=== PATIENT | female | born 1950 | race Caucasian/White ===

== ENCOUNTER 2019-11-26 20:29 | Emergency (ER) | payer MEDICARE, SELFPAY ==
[2019-11-26 20:59] VITALS: BP 205/99; PULSE 82; RESP 20; TEMP 36.7; O2SAT 95
--- NOTE | 2019-11-26 21:19 | ED.EAR ---
HPI - Ear Problem General Chief complaint: Ear Stated complaint: swollen neck, pain in ear/ mouth Source: patient Mode of arrival: ambulatory Limitations: no limitations History of Present Illness HPI Narrative: This is a 69-year-old female presents with right-sided facial pain and pressure right maxillary sinus tenderness radiating into her right ear and right upper tooth area with some nasal congestion pressure in her right frontal sinus area with no neck pain no neck stiffness currently no fever chills no shortness of breath. The discomfort started earlier today and she rates her pain at 10/10 with a pressure sensation and radiating into her right ear. Currently there is no drainage from the right ear there is no vesicles, no nausea vomiting or abdominal pain. MD Complaint: ear pain Location: right ear Duration: constant Severity: severe Relieving factors: nothing Exacerbating factors: chewing Discharge from ear: Reports no Related Data Home Medications Medication Instructions Recorded Confirmed montelukast 10 mg tablet 10 mg PO QPM tablet 06/08/19 11/18/19 amitriptyline 50 mg tablet 50 mg PO .QHS tablet 11/18/19 11/18/19 Allergies Allergy/AdvReac Type Severity Reaction Status Date / Time pioglitazone Allergy Unknown Unknown Verified 11/26/19 21:06 Review of Systems Review of Systems: All systems reviewed & are unremarkable except as noted in HPI and below PMFSH Past Medical History Medical History COPD mixed type GERD (gastroesophageal reflux disease) Hypertension Incisional hernia Insomnia Primary osteoarthritis involving multiple joints Type 2 diabetes mellitus with diabetic polyneuropathy, without long-term current use of insulin Surgical History Surgical History History of hernia repair (~03/01/10) Hx of hernia repair (~02/21/10) Family History Family History Grandparent Diabetes mellitus Mother Diabetes mellitus Hypertension Family history of cardiovascular disease Family history of diabetes mellitus in first degree relative Family history of heart disease in male family member before age 55 Father Family history of emphysema Other Asthma Family history of alcoholism Family history of liver disease Social History Social History Smoking status: Former smoker Second hand tobacco smoke exposure: No Smoking end date: 05/06/12 Alcohol intake: never Substance use: never Substance use type: does not use Gender identity (if verbalized by the patient): Female Exam Const: General: no acute distress Orientation/consciousness: patient oriented x3 HENMT: Head: normal to inspection Face and sinus: sinus tenderness ( Right maxillary and right frontal sinus tenderness with palpation) Eyes: Conjunctivae: conjunctivae normal Pupils: Equal, round and reactive pupils present EOM: EOMs intact bilaterally Neck: Neck: normal visual inspection Chest: Chest palpation & inspection: normal inspection of the chest Resp: Effort & Inspection: normal respiratory effort Cardio: Rate: regular rate Rhythm: regular rhythm GI: Auscultation: normal bowel sounds : General: Yes no CVA tenderness Back/Spine/Pelvis: Back: no CVA tenderness Skin: General skin exam: normal color Rashes: no rashes Neuro: General: patient oriented x3 and moves all extremities Psych: Appearance: grossly normal Mental Status: mental status grossly normal Course Course Emergency Course: patient reassessment has some moderate relief with pain medication and with antibiotics. Vital Signs Vital signs: Vital Signs Temperature 36.7 C 11/26/19 20:59 Pulse Rate 82 11/26/19 20:59 Respiratory Rate 20 11/26/19 20:59 Blood Pressure 205/99 H 11/26/19 20:59 Pulse Oxime
[2019-11-26] MEDS: MORPHINE SULFATE 2 MG/ML INJ (21:36)
[2019-11-26] MEDS: cefTRIAXone 1 GM VIAL IM (21:37)
== END 2019-11-26 21:51 | disposition home or self-care (01) ==
PROVIDERS: Emergency Provider Emergency Medicine; PCP Family Medicine
DX: J01.00 Acute maxillary sinusitis, unspecified (principal)
CPT/HCPCS: 96372; 99283; 99284; J0696; J2270

== ENCOUNTER 2020-09-05 09:32 | Inpatient (IN) | payer MEDICARE, SELFPAY ==
[2020-09-05] VITALS (8 sets, daily range): BP systolic 122–141; BP diastolic 50–66; PULSE 67–74; RESP 16–23; TEMP 36.3–36.8; O2SAT 93–97
--- NOTE | ~2020-09-05 | CT_ITS ---
EXAMINATION: CT soft tissue neck w con EXAM DATE: 09/05/2020 10:45 INDICATION: Right-sided facial and ear swelling for 3 days. Assess for abscess. TECHNIQUE: Spiral CT of the neck was performed following intravenous injection of 75 mL Omnipaque 350 . Axial, coronal and sagittal images were reviewed. The dose-length product (DLP) for this examinat ion was 599.51 mGy-cm. The exposure was tailored according to patient size (auto mA exposure control ), and iterative reconstruction (ASIR) was used as additional dose reduction technique. Comparison is made to prior examination from 05/25/2015. FINDINGS: The thyroid gland is unremarkable. Density difference between the right and left submandi bular glands, more fatty involution on the left. No focal mass suspected. Mild fat stranding along th e right submandibular gland, possible sialoadenitis. Some fat stranding along the right platysma is m uscle. No abscess. There is no cervical lymphadenopathy. There are no masses identified. The supe rior mediastinum is unremarkable. Development of asymmetry of the airway with fullness to the right periglottic region which crosses th e midline at the level of the hyoid bone. Parapharyngeal and pre-glottic fat planes are preserved. There is moderate arteriosclerosis left carotid bulb, mild on the right. No surgical grade stenosis. The orbits are unremarkable. Visualized sinuses and mastoid air cells are well aerated. Lung api omid unremarkable. There is cervical spondylosis. IMPRESSION: 1. Mild fat stranding surrounding the right submandibular gland and along the platysmas muscle, coul d be sialoadenitis. No abscess. 2. Airway asymmetry, fullness to the right periglottic region crossing the midline. Can't exclude ca ncer. Please note medial carotid arteries also at this level. Consider nonemergent laryngoscopy 3. No abscess. Reviewed, dictated and finalized at location B. IMPRESSION: 1. Mild fat stranding surrounding the right submandibular gland and along the platysmas muscle, could be sialoadenitis. No abscess. 2. Airway asymmetry, fullness to the right periglottic region crossing the mid line. Can't exclude cancer. Please note medial carotid arteries also at this le petra. Consider nonemergent laryngoscopy 3. No abscess.
--- NOTE | 2020-09-05 09:53 | PC.NURSE ---
CELESTINA Bland at bedside. Note what appears to be an abscess to right peritonisallar area. Suctioned small amt sanguinous fluid from area. Wound culture obtained.
[2020-09-05] MEDS: SODIUM CHLORIDE 0.9% IV 1,000 ML 999 ML IV CONT (10:13)
--- NOTE | 2020-09-05 10:15 | PC.NURSE ---
Pt reports that throat feels not as bad since he did that {suction}, it doesn't feel like it's closing up anymore .
[2020-09-05 10:16] LABS: Basophils Absolute Auto 0.1 K/mm3 (0.0-0.1); Basophils Percent Auto 0.5 % (0.2-1.2); Eosinophils Absolute Auto 0.3 K/mm3 (0-0.3); Eosinophils Percent Auto 3.1 % (0-4.4); Hemoglobin 13.5 g/dL (12.0-15.0); Immature Granulocyte Absolute 0.11 K/mm3 (0.00-0.031); Lymphocytes Absolute Auto 1.41 K/mm3 (0.9-3.2); Lymphocytes Percent Auto 13.3 % (18.3-44.2); Mean Corpuscular HGB Conc 34.6 g/dl (32-36); Mean Corpuscular Hemoglobin 31.3 pg (26-34); Mean Corpuscular Volume 90.3 fl (80-100); Mean Platelet Volume 10.1 fl (7.4-10.4); Monocytes Absolute Auto 0.7 K/mm3 (0.1-0.6); Monocytes Percent Auto 6.4 % (2.6-8.5); Neutrophils Absolute Auto 8.1 K/mm3 (1.3-6.7); Neutrophils Percent Auto 75.7 % (45.5-73.1); Platelet Count Result 260 k/mm3 (150-375); Red Blood Count 4.32 M/mm3 (4.2-5.4); Red Cell Distribution Width 12.9 % (11.5-14.5); White Blood Count 10.6 K/mm3 (4.5-10.0)
[2020-09-05 10:32] LABS: Alanine Aminotransferase 40 U/L (4-35); Albumin Level 4.3 g/dL (3.5-5.1); Alkaline Phosphatase 93 U/L (38-126); Anion Gap 8 mmol/L (8-16); Aspartate Amino Transferase 34 U/L (14-36); Bilirubin,Total 0.6 mg/dL (0.2-1.3); Blood Urea Nitrogen 11 mg/dL (7-17); Calcium 9.6 mg/dL (8.4-10.2); Carbon Dioxide 28 mmol/L (22-30); Chloride 100 mmol/L (98-107); Estimated CRCL calculation 79 ml/min; Estimated Glomerular Filt Rate > 60; Glucose 142 mg/dL (65-105); Potassium 4.2 mmol/L (3.4-5.0); Sodium 136 mmol/L (137-145)
--- NOTE | 2020-09-05 10:44 | ED.GENADULT ---
HPI - General Adult General Chief complaint: Ear Stated complaint: R EAR/FACIAL SWELLING Time Seen by Provider: 09/05/20 09:34 Source: patient and RN notes reviewed Mode of arrival: ambulatory Limitations: no limitations History of Present Illness HPI narrative: Patient is a 70-year-old female who presents to emergency department for evaluation of right-sided jaw swelling and neck swelling patient has had this issue before and notes that it was attributed to an infection in the gland patient notes over the last several days she has had a reoccurrence patient notes aching pain patient denies URI symptoms fever chills nausea vomiting patient is a diabetic notes her sugars have been well controlled patient is otherwise in the room in no distress upon arrival Related Data Home Medications Medication Instructions Recorded Confirmed montelukast 10 mg tablet 10 mg PO QPM tablet 06/08/19 05/31/20 pitavastatin calcium 4 mg tablet 4 mg PO DAILY 05/31/20 05/31/20 Allergies Allergy/AdvReac Type Severity Reaction Status Date / Time pioglitazone Allergy Unknown Unknown Verified 09/05/20 09:56 Review of Systems Review of Systems: All systems reviewed & are unremarkable except as noted in HPI and below PMFSH Past Medical History Medical History (Updated 09/05/20 @ 13:47 by Oni Riojas PA-C) COPD mixed type GERD (gastroesophageal reflux disease) Hypertension Incisional hernia Insomnia Primary osteoarthritis involving multiple joints Type 2 diabetes mellitus with diabetic polyneuropathy, without long-term current use of insulin Surgical History Surgical History History of hernia repair (~03/01/10) Hx of hernia repair (~02/21/10) Family History Family History Grandparent Diabetes mellitus Mother Diabetes mellitus Hypertension Family history of cardiovascular disease Family history of diabetes mellitus in first degree relative Family history of heart disease in male family member before age 55 Father Family history of emphysema Other Asthma Family history of alcoholism Family history of liver disease Social History Social History Smoking status: Former smoker Second hand tobacco smoke exposure: No Smoking end date: 05/06/12 Alcohol intake: never Substance use: never Substance use type: does not use Gender identity (if verbalized by the patient): Female Exam Narrative: Exam Narrative: GENERAL: Well-appearing, obese, and in no acute distress. HEAD: Normocephalic, atraumatic. EYES: PERRLA and EOMI. ENT: Nares clear, no rhinorrhea or epistaxis. Mucous membranes moist. Oropharynx without tonsillar hypertrophy exudate. Patient with tenderness along the right lateral side of the tongue at the salivary duct gland where purulent discharges able to be expressed the floor of the mouth is soft there is no deviation of the tongue uvula is midline no trismus or drooling. . Bilateral TMs pearly fontana nonbulging NECK: Supple. Patient with swelling along the right jawline and submental region there is no erythema or warmth to touch CHEST: Clear to auscultation. No respiratory distress. No wheezes rales or rhonchi HEART: Regular rate and rhythm. No murmur heard. EXTREMITIES: Normal range of motion. No edema. SKIN: Warm, dry, no rash. NEURO: No focal deficits. Alert and oriented x3. PSYCH: Normal mood and affect. Course Course Emergency Course: Patient in the room in no distress aware of case findings treatment plan diagnosis discussion with her over the treatment options discussion was made with ENT. Patient will be placed in hospital overnight patient agrees with this plan it is felt that this is the safest option given that the patient could have potential for airway involvement however the laryngoscopy in the emergency department
[2020-09-05] MEDS: CLINDAMYCIN 900 MG/D5W 50 ML 900 MG/50 ML PIGGYBACK 50 MG IVPB ×2 (10:54→20:19)
--- NOTE | 2020-09-05 12:00 | PC.NURSE ---
Awaiting arrival of Dr. Dalton for consultation.
--- NOTE | 2020-09-05 12:36 | PC.NURSE ---
Dr. Warren at bedside for exam.
--- NOTE | 2020-09-05 13:50 | PC.NURSE ---
Awaiting bed assignment. Pt sleeping soundly on stretcher.
[2020-09-05 14:25] LABS: Glucose Point of Care 134 (65-105)
--- NOTE | 2020-09-05 14:52 | WPDPROCEDUR ---
Procedures Laryngoscopy Sedation/Analgesia: other (Afrin and lidocaine) Technique: indirect nasal laryngoscopy Laryngoscopy Comments: Normal sinonasal passages normal nasopharynx relatively normal pharyngeal examination the caudal and hypopharyngeal examination was significant for right-sided purulence more so than on the left. There was also edema globally which appeared somewhat physiologic meeting I believe the patient's habitus contributes to a concentric narrowing of the pharyngeal examination. Of note, this examination was limited by poor light source.
--- NOTE | 2020-09-05 14:55 | WPDCN ---
Assessment and Plan Assessment and plan (1) Sialadenitis: Code(s): K11.20 - Sialoadenitis, unspecified Status: Acute Assessment and Plan: The patient's flexible laryngoscopy was limited but was also somewhat reassuring, the patient's airway is relatively patent. I believe any narrowing is not only physiologic but also somewhat contributed to by the current infection. The patient presents with a right-sided saladenitis as well as pharyngitis. I recommended observation as well as IV antibiotics, Unasyn or clindamycin will suffice. I would obtain a CBC daily and observe the patient daily for improvement in her symptoms. I will perform a repeat flexible laryngoscopy on 09/06/20,late morning. Please call with any questions or concerns. The patient is ok for po intake. With any questions regarding diet or any concerns I would consult speech therapy. My cell is [phone] Strict glucose control is also paramount in over coming these infections. Lastly, I would reccomend warm compresses to the right submandibular gland and frequent massage/milking. This was demonstrated to the patient. (2) Pharyngitis: Code(s): J02.9 - Acute pharyngitis, unspecified Status: Acute HPI Data of Consult Date/Time: 09/05/20 14:55 Requesting Physician: Sara Dunaway MD Primary Care Provider: Horacio Prasad PA-C Consult Narrative Narrative: Jenny Mar is a 70 year old female With a history of several days of right-sided submandibular pain. Reports having this issue 2-3 times in the past year. CT with contrast demonstrates a inflamed right-sided submandibular gland with katia glandular fat stranding. The fat stranding also appears to extend in the pharynx as well. Fat stranding extends to floor mouth no stone seen. Patient only reports pain no dysphagia no odynophagia no difficulty breathing. White count 10. ER able to express purulence patient reports improvement in symptoms following expression of purulence from the right submandibular duct. Review of Systems Constitutional: Constitutional: Denies fatigue, Denies fever(s) and Denies lethargy Eyes: Eyes: Denies blurry vision and Denies change in vision ENT: Reports as per HPI Cardiovascular: Cardiovascular: Denies chest pain Respiratory: Respiratory: Denies cough Endocrine: Endocrine: Denies fatigue Hematologic/Lymphatic: Hematologic/Lymphatic: Denies easy bleeding, Denies easy bruising and Denies lymphadenopathy Allergic/Immunologic: Allergic/Immunologic: Denies seasonal rhinorrhea [facility] Past Medical History Medical History (Updated 09/05/20 @ 14:59 by Nathaniel Warren MD) COPD mixed type GERD (gastroesophageal reflux disease) Hypertension Incisional hernia Insomnia Primary osteoarthritis involving multiple joints Type 2 diabetes mellitus with diabetic polyneuropathy, without long-term current use of insulin Surgical History Surgical History History of hernia repair (~03/01/10) Hx of hernia repair (~02/21/10) Family History Family History Grandparent Diabetes mellitus Mother Diabetes mellitus Hypertension Family history of cardiovascular disease Family history of diabetes mellitus in first degree relative Family history of heart disease in male family member before age 55 Father Family history of emphysema Other Asthma Family history of alcoholism Family history of liver disease Social History Social History Smoking status: Former smoker Second hand tobacco smoke exposure: No Smoking end date: 05/06/12 Alcohol intake: never Substance use: never Substance use type: does not use Gender identity (if verbalized by the patient): Female Meds Home Medications and Allergies Home Medications Medication Instructions Recorded
[2020-09-05] MEDS: LACTATED RINGERS 1,000 ML 75 ML IV CONT (15:35)
--- NOTE | 2020-09-05 16:00 | PM.IMHP ---
H&P: HPI History of Present Illness Date/Time: 09/05/20 16:00 Chief Complaint: Right face swelling. Narrative: This is a 70-year-old female with history of sialadenitis, type 2 diabetes, COPD, and hypertension who presented to the emergency department earlier today from home with complaints of right face swelling. Over the last 3 days she has had progressive swelling on the right side of her face with aching discomfort in the same region. She has also had a mild sore throat. Purulent drainage was able to be expressed on massage of the area in the emergency department and a CT with contrast demonstrated an inflamed right-sided submandibular gland with katia glandular fat stranding which appears to extend into the pharynx as well. Dr. Nathaniel Warren (ENT) evaluated the patient in the emergency department via indirect nasal laryngoscopy and he recommends observation with IV antibiotics with repeat laryngoscopy tomorrow morning. At the time my evaluation she reports feeling a bit better after some of the drainage was expressed however she admits that it was quite painful. She denies fever, chills, sweats, sinus congestion, rhinorrhea, otalgia, cough, dysphagia, shortness of breath, nausea, and vomiting. Review of Systems Review of Systems: Narrative: Twelve systems were reviewed with pertinent positives and negatives as per HPI. She believes her diabetes is well controlled. No blurry vision, polydipsia, or polyuria. She has a ventral hernia that will give her discomfort when bending over however no pain with rest and it has always been reducible. Except as documented, all other systems were reviewed and are negative. [facility] Past Medical History Medical History (Updated 09/06/20 @ 00:47 by Heather Buenrostro PA-C) Cervical cancer COPD mixed type Gastroesophageal reflux disease Incisional hernia Insomnia Mixed hyperlipidemia Primary hypertension Primary osteoarthritis involving multiple joints Type 2 diabetes mellitus with diabetic polyneuropathy, without long-term current use of insulin Surgical History Surgical History (Updated 09/06/20 @ 00:47 by Heather Buenrostro PA-C) History of hernia repair (~02/2010) History of total hysterectomy Family History Family History Grandparent Diabetes mellitus Mother Diabetes mellitus Hypertension Family history of cardiovascular disease Family history of diabetes mellitus in first degree relative Family history of heart disease in male family member before age 55 Father Family history of emphysema Other Asthma Family history of alcoholism Family history of liver disease Social History Social History (Updated 09/06/20 @ 00:47 by Heatehr Buenrostro PA-C) Social History: Surrogate decision maker: Halina Calero, daughter. Code status: Full code. Smoking status: Former smoker Second hand tobacco smoke exposure: No Alcohol intake: never Substance use: never Substance use type: does not use Additional living arrangements comments: Resides in [place] in her own home. Occupation/Education: retired Additional occupation/education comments: Unemployed. Gender identity (if verbalized by the patient): Female Spiritual care concerns: No Meds Home Medications and Allergies Home Medications Medication Instructions Recorded Confirmed Type montelukast 10 mg tablet 10 mg PO QPM tablet 06/08/19 09/05/20 History metoprolol tartrate 50 mg tablet 75 mg PO BID #270 tablet 10/13/19 09/05/20 Rx loratadine [Claritin] 10 mg PO DAILY #7 tablet 11/26/19 09/05/20 Rx blood sugar diagnostic #100 each 12/15/19 09/05/20 Rx amitriptyline 50 mg tablet 50 mg PO .QHS #90 tablet 03/30/20 09/05/20 Rx tramadol 50 mg tablet 50 mg PO QID PRN #120 tablet 04/11/20 09/05/20 Rx albuterol sulfate 90 mcg/actuation 2 puff INHALATION Q4-6H PRN #8.5 gm 05/18/20 09/05/20 Rx aerosol inhaler lisinopril 20 mg tablet 20 mg PO PROSPER
[2020-09-05 17:44] LABS: Glucose Point of Care 123 (65-105)
[2020-09-05] MEDS: traMADol HCL (*CRX) 50 MG TABLET PO (17:56)
[2020-09-05] MEDS: MONTELUKAST SODIUM 10 MG TABLET PO (17:57)
[2020-09-05] MEDS: SACCHAROMYCES BOULARDII 250 MG CAPSULE PO (17:57)
[2020-09-05] MEDS: METOPROLOL TARTRATE 25 MG TABLET 75 MG PO (20:17)
[2020-09-05] MEDS: DOXAZOSIN MESYLATE 4 MG TABLET PO (20:17)
[2020-09-05] MEDS: AMITRIPTYLINE HCL 25 MG TABLET 50 MG PO (20:17)
[2020-09-05 22:21] LABS: Glucose Point of Care 177 (65-105)
[2020-09-06 04:54] VITALS: BP 129/52; PULSE 66; RESP 20; TEMP 36.5; O2SAT 93
[2020-09-06] MEDS: CLINDAMYCIN 900 MG/D5W 50 ML 900 MG/50 ML PIGGYBACK 50 MG IVPB (05:39)
[2020-09-06] MEDS: PANTOPRAZOLE 40 MG TABLET PO (05:43)
[2020-09-06 05:45] LABS: Basophils Absolute Auto 0.1 K/mm3 (0.0-0.1); Basophils Percent Auto 0.6 % (0.2-1.2); Eosinophils Absolute Auto 0.3 K/mm3 (0-0.3); Eosinophils Percent Auto 3.9 % (0-4.4); Hematocrit 33.7 % (37.0-47.0); Hemoglobin 11.7 g/dL (12.0-15.0); Immature Granulocyte Absolute 0.09 K/mm3 (0.00-0.031); Immature Granulocyte Percent A 1.1 % (0-0.5); Lymphocytes Absolute Auto 1.49 K/mm3 (0.9-3.2); Mean Corpuscular HGB Conc 34.7 g/dl (32-36); Mean Corpuscular Hemoglobin 30.6 pg (26-34); Mean Corpuscular Volume 88.2 fl (80-100); Monocytes Absolute Auto 0.7 K/mm3 (0.1-0.6); Monocytes Percent Auto 7.8 % (2.6-8.5); Neutrophils Absolute Auto 5.7 K/mm3 (1.3-6.7); Neutrophils Percent Auto 68.6 % (45.5-73.1); Platelet Count Result 235 k/mm3 (150-375); Red Blood Count 3.82 M/mm3 (4.2-5.4); Red Cell Distribution Width 12.7 % (11.5-14.5); White Blood Count 8.3 K/mm3 (4.5-10.0)
[2020-09-06 06:26] LABS: Anion Gap 4 mmol/L (8-16); Blood Urea Nitrogen 7 mg/dL (7-17); Calcium 8.9 mg/dL (8.4-10.2); Carbon Dioxide 30 mmol/L (22-30); Chloride 100 mmol/L (98-107); Estimated CRCL calculation 79 ml/min; Estimated Glomerular Filt Rate > 60; Glucose 127 mg/dL (65-105); Magnesium 1.4 mg/dL (1.6-2.3); Potassium 3.5 mmol/L (3.4-5.0); Sodium 134 mmol/L (137-145)
[2020-09-06 06:41] LABS: Hemoglobin A1C 6.2 % (<5.7)
[2020-09-06] MEDS: hydroCHLOROthiazide 12.5 MG CAPSULE PO (08:24)
[2020-09-06] MEDS: DICLOFENAC SOD 75 MG TABLET.EC PO (08:24)
[2020-09-06] MEDS: traMADol HCL (*CRX) 50 MG TABLET PO (08:24)
[2020-09-06] MEDS: LORATADINE 10 MG TABLET PO (08:25)
[2020-09-06] MEDS: lisinopriL 20 MG TABLET PO (08:25)
[2020-09-06] MEDS: SACCHAROMYCES BOULARDII 250 MG CAPSULE PO (08:25)
[2020-09-06] MEDS: METOPROLOL TARTRATE 25 MG TABLET 75 MG PO (08:25)
[2020-09-06] MEDS: FLUTICASONE/SALMETEROL 115-21 MCG INHALER 1 PUFF 2 PUFF INHALATION (08:46)
[2020-09-06 09:10] LABS: Glucose Point of Care 132 (65-105)
[2020-09-06 09:19] VITALS: O2SAT 93
[2020-09-06 11:14] LABS: Glucose Point of Care 142 (65-105)
[2020-09-06 12:22] LABS: Glucose Point of Care 119 (65-105)
--- NOTE | 2020-09-06 12:58 | WPDCN ---
Assessment and Plan Assessment and plan (1) Sialadenitis: Code(s): K11.20 - Sialoadenitis, unspecified Status: Acute Assessment and Plan: the patient should follow up with me in 1-2 weeks. We will discuss removing the gland versus referral to [facility] for endoscopy. The patient should be discharged on 7-10 days of clindamycin. The patient should monitor her blood sugars at home. The patient should continue milking and massaging the gland as well as using warm compresses. I recommend increasing hydration as well as sucking on sugar free sialagogues. All this was conveyed to the patient as well. I conveyed the importance that should she have any difficulty breathing or swallowing she needs to present again to the emergency room as the infection is not yet gone. She stated that she understands and will do this. HPI Data of Consult Date/Time: 09/06/20 12:58 Requesting Physician: Sara Dunaway MD Primary Care Provider: Horacio Prasad PA-C Consult Narrative Narrative: Jenny Mar is a 70 year old female with recurrent right sided sialoadenitis. White count down from 10 to 8 this morning. Patient reports near total improvement in her symptoms other than right-sided neck pain. Currently on clindamycin. Review of Systems Constitutional: Constitutional: Denies fatigue, Denies fever(s) and Denies lethargy Eyes: Eyes: Denies blurry vision and Denies change in vision ENT: Reports as per HPI Cardiovascular: Cardiovascular: Denies chest pain Respiratory: Respiratory: Denies cough Endocrine: Endocrine: Denies fatigue Hematologic/Lymphatic: Hematologic/Lymphatic: Denies easy bleeding, Denies easy bruising and Denies lymphadenopathy Allergic/Immunologic: Allergic/Immunologic: Denies seasonal rhinorrhea [facility] Past Medical History Medical History (Updated 09/06/20 @ 00:47 by Heather Buenrostro PA-C) Cervical cancer COPD mixed type Gastroesophageal reflux disease Incisional hernia Insomnia Mixed hyperlipidemia Primary hypertension Primary osteoarthritis involving multiple joints Type 2 diabetes mellitus with diabetic polyneuropathy, without long-term current use of insulin Surgical History Surgical History (Updated 09/06/20 @ 00:47 by Heather Buenrostro PA-C) History of hernia repair (~02/2010) History of total hysterectomy Family History Family History Grandparent Diabetes mellitus Mother Diabetes mellitus Hypertension Family history of cardiovascular disease Family history of diabetes mellitus in first degree relative Family history of heart disease in male family member before age 55 Father Family history of emphysema Other Asthma Family history of alcoholism Family history of liver disease Social History Social History (Updated 09/06/20 @ 00:47 by Heather Buenrostro PA-C) Social History: Surrogate decision maker: Halina Calero, daughter. Code status: Full code. Smoking status: Former smoker Second hand tobacco smoke exposure: No Alcohol intake: never Substance use: never Substance use type: does not use Additional living arrangements comments: Resides in [place] in her own home. Occupation/Education: retired Additional occupation/education comments: Unemployed. Gender identity (if verbalized by the patient): Female Spiritual care concerns: No Meds Home Medications and Allergies Home Medications Medication Instructions Recorded Confirmed Type montelukast 10 mg tablet 10 mg PO QPM tablet 06/08/19 09/05/20 History metoprolol tartrate 50 mg tablet 75 mg PO BID #270 tablet 10/13/19 09/05/20 Rx loratadine [Claritin] 10 mg PO DAILY #7 tablet 11/26/19 09/05/20 Rx blood sugar diagnostic #100 each 12/15/19 09/05/20 Rx amitriptyline 50 mg tablet 50 mg PO .QHS #90 tablet 03/30/20 09/05/20 Rx tramadol 50 mg tablet 50 mg PO QID PRN #120 tablet 04/11/20 09/05/20 Rx albu
[2020-09-06 14:00] VITALS: BP 152/64; PULSE 65; RESP 18; TEMP 36.2; O2SAT 96
[2020-09-06] MEDS: CLINDAMYCIN HCL 150 MG CAP 900 MG PO (15:00)
--- NOTE | 2020-09-06 16:00 | PM.DS ---
DS: Admitting Diagnosis Admitting Diagnosis Admitting Diagnosis: right sided facial swelling DS: Discharge Diagnosis Discharge Diagnosis (1) Sialadenitis: Code(s): K11.20 - Sialoadenitis, unspecified Status: Acute (2) Pharyngitis: Code(s): J02.9 - Acute pharyngitis, unspecified Status: Acute (3) Primary hypertension: Code(s): I10 - Essential (primary) hypertension Status: Acute (4) Type 2 diabetes mellitus with diabetic polyneuropathy, without long-term current use of insulin: Code(s): E11.42 - Type 2 diabetes mellitus with diabetic polyneuropathy Status: Acute (5) COPD mixed type: Code(s): J44.9 - Chronic obstructive pulmonary disease, unspecified Status: Acute (6) Gastroesophageal reflux disease: Code(s): K21.9 - Gastro-esophageal reflux disease without esophagitis Status: Acute DS: Summary Hospital Course Hospital Course: 70 year old lady admitted with a 3 day history of right-sided jaw pain and swelling similar to prior episodes of sialadenitis. CT did show evidence of the same as well as some swelling and she was noted to have pharyngitis on indirect nasal laryngoscopy per Dr. Warren. Dr. Warren recommended overnight admission for IV antibiotics. He initially planed to repeat lower endoscopy today, however she is is scheduled to follow up with him in 2 weeks to discuss treatment options. She denies any SOB and tolerating her secretions and diet. She is stable and will be discharged home. Time Spent with Patient Time attestation: Total time spent providing and/or coordinating discharge services: 55 min Exam Narrative: Exam Narrative: General: Well-developed female sitting up in bed in no distress. Weight: 113.6 kilograms. BMI: 45.8. HEENT: PERRL, EOMI. Sclerae anicteric. Oral mucosa moist. Oropharynx is crowded. Right submandibular gland is firm and tender to palpation with mild surrounding erythema. Neck: Supple. Right submandibular gland firm enlarged as above. Respiratory: Lungs are clear to auscultation bilaterally. Cardiovascular: Regular rate and rhythm with S1-S2. Gastrointestinal: Abdomen is soft, morbidly obese, nontender, and nondistended with positive bowel sounds. Reducible hernia left of midline. Skin: Warm and dry. No rash or lesions on limited exam. Extremities: No cyanosis, clubbing, or edema. Radial and pedal pulses intact. Neurological: Alert. Cranial nerves 2-12 are grossly intact. No gross focal deficits to casual conversation. Psychiatric: Pleasant and cooperative with appropriate mood and affect. DS: Data Data Completed and Pending Labs on day of discharge: Labs from last 24 hours 09/06/20 09/06/20 09/06/20 12:15 11:10 08:23 WBC RBC Hgb Hct MCV MCH MCHC RDW Plt Count MPV Immature Gran % (Auto) Neut % (Auto) Lymph % (Auto) [place] % (Auto) Eos % (Auto) Baso % (Auto) Lymph # (Auto) [place] # (Auto) Eos # (Auto) Baso # (Auto) Abs Immat Gran (auto) Absolute Neuts (auto) Absolute Nucleated RBC Nucleated RBC % Sodium Potassium Chloride Carbon Dioxide Anion Gap BUN Creatinine Estim Creat Clear Calc Estimated GFR Glucose POC Capillary Glucose 119 H 142 H 132 H Hemoglobin A1c Calcium Magnesium 09/06/20 09/06/20 09/06/20 05:21 05:21 05:21 WBC 8.3 RBC 3.82 L Hgb 11.7 L Hct 33.7 L MCV 88.2 MCH 30.6 MCHC 34.7 RDW 12.7 Plt Count 235 MPV 10.0 Immature Gran % (Auto) 1.1 H Neut % (Auto) 68.6 Lymph % (Auto) 18.0 L [place] % (Auto) 7.8 Eos % (Auto) 3.9 Baso % (Auto) 0.6 Lymph # (Auto) 1.49 [place] # (Auto) 0.7 H Eos # (Auto) 0.3 Baso # (Auto) 0.1 Abs Immat Gran (auto) 0.09 H Absolute Neuts (auto) 5.7 Absolute Nucleated RBC 0.0 Nucleated RBC % 0.0 Sodium 134 L Potassium 3.5 Chloride 100 Carbon
== END 2020-09-06 15:29 | disposition home or self-care (01) | DRG 155 ==
LOC: ANHED 13:47 → ANH2MED 14:27
PROVIDERS: Emergency Medicine Emergency Medical Services; Physician Assistant; Admitting Provider Family Medicine; Emergency Provider Emergency Medicine; PCP Physician Assistant; Visit Provider Family Medicine
DX: K11.22 Acute recurrent sialoadenitis (principal); Z68.42 Body mass index [BMI] 45.0-49.9, adult; I10 Essential (primary) hypertension; E11.42 Type 2 diabetes mellitus with diabetic polyneuropathy; J44.9 Chronic obstructive pulmonary disease, unspecified; K21.9 Gastro-esophageal reflux disease without esophagitis; M15.9 Polyosteoarthritis, unspecified; E66.9 Obesity, unspecified; Z87.891 Personal history of nicotine dependence; Z85.41 Personal history of malignant neoplasm of cervix uteri
CPT/HCPCS: 36415; 70491; 80048; 80053; 82948; 83036; 83735; 85025; 86140; 87070; 87075; 87205; 96365; 96367; 99285; A9270; G0378; J0131; J7030; J7120; Q9967

== ENCOUNTER → 2021-08-10 10:39 | Outpatient (CLI) | payer MEDICARE, SELFPAY ==
--- NOTE | ~2021-08-10 | MM_ITS ---
EXAMINATION: MM screening venkat BI w maki HISTORY: Screening TECHNIQUE: Craniocaudal and mediolateral oblique 3-D tomosynthesis images were obtained and synthetic 2-D images were generated. CAD analysis was submitted and interpreted. COMPARISON: Comparison to multiple prior studies sequentially, with oldest reviewed study dated 09/18. BREAST PARENCHYMAL COMPOSITION: There are scattered areas of fibroglandular density. FINDINGS: There are developing asymmetries in the subareolar location of the right breast on CC view. The left breast is stable without evidence for malignancy. IMPRESSION: 1. Developing right breast asymmetries. 2. Additional mammographic views and possible breast ultrasound are recommended. BI-RADS Category 0: Incomplete: Needs additional imaging evaluation. Reviewed, dictated and finalized at location A. IMPRESSION: 1. Developing right breast asymmetries. 2. Additional mammographic views and possible breast ultrasound are recommended . BI-RADS Category 0: Incomplete: Needs additional imaging evaluation.
== END ==
PROVIDERS: PCP Family Medicine; Visit Provider Family Medicine
DX: Z12.31 Encounter for screening mammogram for malignant neoplasm of breast (principal); R92.8 Other abnormal and inconclusive findings on diagnostic imaging of breast
CPT/HCPCS: 77063; 77067

== ENCOUNTER → 2021-08-23 09:06 | Outpatient (CLI) | payer MEDICARE, SELFPAY ==
--- NOTE | ~2021-08-23 | MMUS_ITS ---
EXAMINATION: MM diagnostic venkat RT w maki, US breast RT complete HISTORY: Developing right breast asymmetries reported on August 10, 2021 bilateral screening mammogram TECHNIQUE: Additional 3-D tomosynthesis images of the right breast were performed and synthetic 2-D i mages were generated. CAD analysis was submitted and interpreted. High resolution complete right [address] st ultrasound including all 4 quadrants and subareolar area was performed. COMPARISON: Serial mammogram examinations dating back to 09/18/2013 bilateral screening mammogram FINDINGS: MAMMOGRAPHIC FINDINGS: There is chronic mildly nodular fibroglandular stroma. No suspicious mass or significant new or devel oping density is noted. There are multiple benign calcifications. No malignant calcification, skin thickening or retraction is detected. ULTRASOUND: 3:00 subareolar area: Parallel circumscribed 2.5 x 3.6 mm sonolucency without internal vascularity or posterior shadowing 6:00 subareolar area: 2.9 x 5.7 x 6.8 mm sonolucency without internal vascularity, consistent with cy st No suspicious mass or shadowing is evident. IMPRESSION: 1. Probable benign findings 2. 6 month diagnostic right mammogram and right breast ultrasound follow-up are recommended BI-RADS category 3, probably benign findings. Reviewed, dictated and finalized at location A. IMPRESSION: 1. Probable benign findings 2. 6 month diagnostic right mammogram and right breast ultrasound follow-up are recommended BI-RADS category 3, probably benign findings.
== END ==
PROVIDERS: PCP Family Medicine; Visit Provider Family Medicine
DX: R92.8 Other abnormal and inconclusive findings on diagnostic imaging of breast (principal)
CPT/HCPCS: 76641; 77061; 77065; G0279

== ENCOUNTER → 2022-03-26 09:25 | Outpatient (CLI) | payer MEDICARE, SELFPAY ==
--- NOTE | ~2022-03-26 | MMUS_ITS ---
EXAMINATION: MM diagnostic venkat RT w maki, US breast RT complete HISTORY: Six-month follow-up of probable benign findings TECHNIQUE: Full field and spot ML, MLO and CC 3-D tomosynthesis images of the right breast were perfo rmed and synthetic 2-D images were generated. CAD analysis was submitted and interpreted. High resolu tion complete right breast ultrasound including all 4 quadrants and subareolar area was performed. COMPARISON: 08/23/2021 diagnostic right mammogram and complete right breast ultrasound 08/10/2021 screening mammogram 10/20/2018 bilateral screening mammogram FINDINGS: MAMMOGRAPHIC FINDINGS: There are occasional circumscribed opacities measuring up to approximately 4.6 x 7.8 mm (coned compre ssion MLO Tomosynthesis image 39/83). There are multiple benign calcifications. No suspicious mass or architectural distortion, malignant calcification, skin thickening or retractio n of the right breast is detected. ULTRASOUND: No suspicious mass or shadowing is detected. 3:00 subareolar: 3.1 x 3.8 mm sonolucency with through transmission 6:00 subareolar: Parallel circumscribed 3 x 7 mm sonolucency with through transmission 10:00 subareolar area: Parallel circumscribed 3 x 5.5 mm septated probable cysts IMPRESSION: 1. Benign findings 2. Routine annual mammographic screening is recommended BI-RADS Category 2: Benign finding(s). Reviewed, dictated and finalized at location A. [employer] IMPRESSION: 1. Benign findings 2. Routine annual mammographic screening is recommended BI-RADS Category 2: Benign finding(s).
== END ==
PROVIDERS: PCP Family Medicine; Visit Provider Family Medicine
DX: R92.8 Other abnormal and inconclusive findings on diagnostic imaging of breast (principal)
CPT/HCPCS: 76641; 77061; 77065; G0279

== ENCOUNTER 2022-06-22 21:49 | Emergency (ER) | payer MEDICARE, SELFPAY ==
[2022-06-22] VITALS (8 sets, daily range): BP systolic 194–201; BP diastolic 76–100; PULSE 76–96; RESP 20; TEMP 37.1; O2SAT 92–94
--- NOTE | 2022-06-22 22:31 | ED.ALLEREA ---
HPI - Allergic Reaction General Chief complaint: Allergic Reaction Stated complaint: ambulance Time Seen by Provider: 06/22/22 22:29 History of Present Illness HPI narrative: 72-year-old female patient is brought to the ER by EMS after she developed an allergic reaction after eating her meals tonight. The patient apparently ate strawberry ice for the 1st time with her dinner and soon after that she started noticing some wheezing as well as swelling of the tongue. The patient became very anxious. She was given Benadryl by the family as well as by the EMS. She did have elevated blood pressure. She denies any trouble swallowing. She denies any itching or rash. She states that she is feeling a little better but the tongue is still swollen. She denies any drooling or trouble swallowing. Had right salivary gland removed in May of this year. States that has had multiple episodes of salivary duct stones in the past and they have been flushed before without much relief. Related Data Allergies Allergy/AdvReac Type Severity Reaction Status Date / Time pioglitazone Allergy Intermediate Swelling Verified 05/14/22 10:11 Review of Systems Review of Systems: All systems reviewed & are unremarkable except as noted in HPI and below Constitutional: Constitutional: Reports no additional constitutional complaints Eyes: Eyes: Reports no additional eye complaints ENT: Reports system reviewed and no additional complaints, except as documented Cardiovascular: Cardiovascular: Reports no additional cardiovascular complaints Respiratory: Respiratory: Reports no additional respiratory complaints Gastrointestinal: Gastrointestinal: Reports no additional gastrointestinal complaints Genitourinary: Genitourinary: Reports no additional female genitourinary complaints Musculoskeletal: Musculoskeletal: Reports no additional musculoskeletal complaints Integumentary/Breasts: Skin/Breast: Reports system reviewed and no additional complaints, except as docu Neurologic: Reports system reviewed and no additional complaints, except as documented Psychiatric: Psychiatric: Reports no additional psychiatric complaints Endocrine: Endocrine: Reports no additional endocrine complaints Hematologic/Lymphatic: Hematologic/Lymphatic: Reports no additional hematologic/lymphatic complaints Allergic/Immunologic: Allergic/Immunologic: Reports tongue swelling PMFSH Past Medical History Medical History Cervical cancer COPD mixed type Encounter for immunization Gastroesophageal reflux disease Incisional hernia Insomnia Mixed hyperlipidemia Primary hypertension Primary osteoarthritis involving multiple joints Salivary gland calculus Type 2 diabetes mellitus with diabetic polyneuropathy, without long-term current use of insulin Surgical History Surgical History History of hernia repair (~02/2010) History of total hysterectomy Family History Family History Grandparent Diabetes mellitus Mother Diabetes mellitus Hypertension Family history of cardiovascular disease Family history of diabetes mellitus in first degree relative Family history of heart disease in male family member before age 55 Father Family history of emphysema Other Asthma Family history of alcoholism Family history of liver disease Social History Social History Social History: Surrogate decision maker: Halina Calero, daughter. Code status: Full code. Smoking status: Former smoker Second hand tobacco smoke exposure: No Alcohol intake: never Substance use: never Substance use type: does not use Lack of Transportation: YES Lack of Food: Sometimes True Current Housing: I Have Housing Concerned About Future Housing: No Difficulty Paying Gas/Electric [place]
[2022-06-22] MEDS: hydrOXYzine HCL 25 MG TABLET PO (22:42)
[2022-06-22] MEDS: cloNIDine HCL 0.1 MG TABLET PO (22:42)
[2022-06-22] MEDS: FAMOTIDINE 20 MG/ISO 50 ML 20 MG/50 ML BAG 100 MG IVPB (22:43)
[2022-06-23 00:08] VITALS: PULSE 69; RESP 20; TEMP 36.7; O2SAT 99
== END 2022-06-23 00:14 | disposition home or self-care (01) ==
PROVIDERS: Emergency Provider Emergency Medicine; PCP Family Medicine
DX: T78.3XXA Angioneurotic edema, initial encounter (principal); I10 Essential (primary) hypertension; E78.2 Mixed hyperlipidemia; E11.9 Type 2 diabetes mellitus without complications; Z87.891 Personal history of nicotine dependence; Z85.41 Personal history of malignant neoplasm of cervix uteri
CPT/HCPCS: 96365; 96375; 99284; A9270; J1100

== ENCOUNTER 2023-03-25 02:06 | Day surgery (SDC) | payer MEDICARE, SELFPAY ==
[2023-03-11 13:34] VITALS: BMI 44.9
--- NOTE | 2023-03-22 10:50 | SUR.PREOP ---
Patient called regarding upcoming procedure. Reviewed preop instructions, appointment times, and procedure prep.
[2023-03-25 09:50] VITALS: BP 171/82; PULSE 75; RESP 20; TEMP 36.8; O2SAT 96; BMI 43.9
[2023-03-25 10:00] LABS: Glucose Point of Care 141 mg/dl (65-105)
[2023-03-25] MEDS: LACTATED RINGERS 1,000 ML 150 ML IV CONT (10:03)
--- NOTE | 2023-03-25 10:13 | WPDANESEPPF ---
Anes - Initial Pre Proc Eval Procedure: Operation Date: 03/25/23 11:00 Proposed Procedures p Colonoscopy - Lino Barron MD Date/Time: 03/25/23 10:13 Surgeon: Lino Barron MD Pre Op Diagnosis: Personal hx of colonic polyps Patient Data Age: 72 Gender: F Height: 1.6 m Weight: 112.5 kg Last Vital Signs Temp 98.2 F 03/25/23 09:50 Pulse 75 03/25/23 09:50 Resp 20 03/25/23 09:50 BP 171/82 H 03/25/23 09:50 Pulse Ox 96 03/25/23 09:50 O2 Del Method Room Air 03/25/23 09:50 Allergies Allergy/AdvReac Type Severity Reaction Status Date / Time pioglitazone AdvReac Intermediate Swelling Verified 03/25/23 09:48 morphine AdvReac Unknown Agitated/An Verified 03/25/23 09:48 gry Home Medications Medication Instructions Recorded Confirmed Type blood sugar diagnostic (OneTouch #100 ea 12/15/19 03/25/23 Rx Ultra Blue Test Strip) Saccharomyces boulardii 250 mg 250 mg PO BID #30 caps 09/06/20 03/25/23 Rx capsule (Florastor) lorazepam 0.5 mg tablet 0.5 mg PO TID PRN anxiety #40 tabs 02/03/21 03/25/23 Rx metformin 1,000 mg tablet 1,000 mg PO BID #180 tabs 04/08/22 03/25/23 Rx famotidine 40 mg tablet 40 mg PO BID #20 tabs 06/22/22 03/25/23 Rx hydroxyzine HCl 25 mg tablet 25 mg PO TID #20 tabs 06/22/22 03/25/23 Rx loratadine 10 mg tablet (Claritin) 10 mg PO DAILY #30 tabs 09/20/22 03/25/23 Rx doxazosin 4 mg tablet 4 mg PO HS #90 tabs 09/30/22 03/25/23 Rx fluticasone propionate 50 1 spray intranasal Q12H #16 grams 09/30/22 03/25/23 Rx mcg/actuation nasal spray,suspension omeprazole 20 mg capsule,delayed See Rx Instructions .Route 09/30/22 03/25/23 Rx release .COMPLEX #90 caps metoprolol tartrate 50 mg tablet 100 mg PO BID #360 tabs 10/30/22 03/25/23 Rx blood sugar diagnostic (Blood #100 ea 11/13/22 03/25/23 Rx Glucose Test strips) blood-glucose meter #1 ea 11/13/22 03/25/23 Rx lisinopril 20 mg tablet 40 mg PO DAILY #180 tabs 11/13/22 03/25/23 Rx potassium chloride 10 mEq 10 meq PO .M W F #90 caps 11/13/22 03/25/23 Rx capsule,extended release pitavastatin calcium 4 mg tablet 4 mg PO HS #90 tabs 12/14/22 03/25/23 Rx (Livalo) montelukast 10 mg tablet 10 mg PO QPM #30 tabs 01/26/23 03/25/23 Rx fluticasone 500 mcg-salmeterol 50 See Rx Instructions .Route 01/29/23 03/25/23 Rx mcg/dose blistr powdr for .COMPLEX #60 ea inhalation (Wixela Inhub) hydrochlorothiazide 25 mg tablet 25 mg PO DAILY #90 tabs 02/13/23 03/25/23 Rx diclofenac sodium 75 mg 75 mg PO BID PRN pain #180 tabs 02/26/23 03/25/23 Rx tablet,delayed release tramadol 50 mg tablet 50 mg PO QID PRN pain #120 tabs 03/06/23 03/25/23 Rx albuterol sulfate 90 mcg/actuation See Rx Instructions .Route 03/11/23 03/25/23 History aerosol inhaler .COMPLEX PRN Wheezing epinephrine 0.3 mg/0.3 mL 0.3 ml subcut ONCE PRN Anaphylaxis 03/11/23 03/25/23 History injection, auto-injector (EpiPen 2-Aditya) Laboratory Tests 03/25/23 09:58 POC Capillary Glucose 141 H mg/dl (65-105) Patient hx anesthesia problems: none Family hx anesthesia problems: none Results Review: All pre-operative results and documents have been reviewed as part of the pre-operative evaluation. [facility] Past Medical History Medical History Cervical cancer COPD mixed type Encounter for immunization Gastroesophageal reflux disease Incisional hernia Insomnia Mixed hyperlipidemia Primary hypertension Primary osteoarthritis involving multiple joints Salivary gland calculus Type 2 diabetes mellitus with diabetic polyneuropathy, without long-term current use of insulin Surgical History Surgical History History of hernia repair (~02/2010) History of total hysterectomy Family History Family History Grandparent Diabetes mellitus Mother Diabete
--- NOTE | 2023-03-25 10:23 | PM.HPGS ---
History of Present Illness History of Present Illness Consent: Risks, benefits, and alternatives have been discussed and questions answered. Patient agrees to proceed with procedure. Chief complaint: colon screening Narrative: Jenny Mar is a 72 year old female here for screening colonoscopy, last one 10 years ago Review of Systems Constitutional: Constitutional: Denies headache(s) and Denies weakness Eyes: Eyes: Denies blurry vision ENT: Reports Normal hearing present, Denies headache(s) and Denies neck pain Cardiovascular: Cardiovascular: Denies chest pain and Denies dyspnea Respiratory: Respiratory: Denies dyspnea Gastrointestinal: Gastrointestinal: Reports no additional gastrointestinal complaints Genitourinary: Genitourinary: Denies dysuria Musculoskeletal: Musculoskeletal: Denies neck pain Integumentary/Breasts: Skin/Breast: Denies dry skin Neurologic: Reports Normal hearing present, Denies headache(s) and Denies weakness Psychiatric: Psychiatric: Denies anxiety Endocrine: Endocrine: Denies change in body appearance Hematologic/Lymphatic: Hematologic/Lymphatic: Denies easy bleeding Allergic/Immunologic: Allergic/Immunologic: Denies urticaria PMFSH Past Medical History Medical History (Updated 03/25/23 @ 10:24 by Lino Barron MD) Cervical cancer Colon cancer screening COPD mixed type Encounter for immunization Gastroesophageal reflux disease Incisional hernia Insomnia Mixed hyperlipidemia Primary hypertension Primary osteoarthritis involving multiple joints Salivary gland calculus Type 2 diabetes mellitus with diabetic polyneuropathy, without long-term current use of insulin Surgical History Surgical History History of hernia repair (~02/2010) History of total hysterectomy Family History Family History Grandparent Diabetes mellitus Mother Diabetes mellitus Hypertension Family history of cardiovascular disease Family history of diabetes mellitus in first degree relative Family history of heart disease in male family member before age 55 Father Family history of emphysema Other Asthma Family history of alcoholism Family history of liver disease Social History Social History Social History: Surrogate decision maker: Halina Calero, daughter. Code status: Full code. Years smoked: 40 Smoking status: Former smoker Second hand tobacco smoke exposure: No Alcohol intake: never Substance use: never Substance use type: does not use Lack of Transportation: YES Lack of Food: Sometimes True Current Housing: I Have Housing Concerned About Future Housing: No Difficulty Paying Gas/Electric Bills: YES Difficulty Paying for Meds: No Currently Unemployed: No Education: Decline to Answer Difficulty w/ Childcare or Family Care: No Living arrangements: with family Additional living arrangements comments: Resides in [place] in her own home. Occupation/Education: retired Additional occupation/education comments: Unemployed. Gender identity (if verbalized by the patient): Female Spiritual care concerns: No Meds Home Medications and Allergies Home Medications Medication Instructions Recorded Confirmed Type blood sugar diagnostic (OneTouch #100 ea 12/15/19 03/25/23 Rx Ultra Blue Test Strip) Saccharomyces boulardii 250 mg 250 mg PO BID #30 caps 09/06/20 03/25/23 Rx capsule (Florastor) lorazepam 0.5 mg tablet 0.5 mg PO TID PRN anxiety #40 tabs 02/03/21 03/25/23 Rx metformin 1,000 mg tablet 1,000 mg PO BID #180 tabs 04/08/22 03/25/23 Rx famotidine 40 mg tablet 40 mg PO BID #20 tabs 06/22/22 03/25/23 Rx hydroxyzine HCl 25 mg tablet 25 mg PO TID #20 tabs 06/22/22 03/25/23 Rx loratadine 10 mg tablet (Claritin) 10 mg PO DAILY #30 tabs 09/20/22 03/25/23
[2023-03-25 10:43] VITALS: BP 118/75; PULSE 76; RESP 21; O2SAT 95
[2023-03-25 10:53] VITALS: BP 131/72; PULSE 72; RESP 24; O2SAT 97
[2023-03-25 11:03] VITALS: BP 142/83; PULSE 70; RESP 26; O2SAT 97
== END 2023-03-25 11:07 | disposition home or self-care (01) ==
PROVIDERS: PCP Family Medicine; Visit Provider Internal Medicine Gastroenterology
PROC: 0DJD8ZZ Inspection of Lower Intestinal Tract, Via Natural or Artificial Opening Endoscopic (ICD-10-PCS; CPT 45378; principal; 2023-03-25 11:00)
DX: Z12.11 Encounter for screening for malignant neoplasm of colon (principal); K63.5 Polyp of colon; K57.30 Diverticulosis of large intestine without perforation or abscess without bleeding; K64.8 Other hemorrhoids; K21.9 Gastro-esophageal reflux disease without esophagitis; G47.00 Insomnia, unspecified; E78.2 Mixed hyperlipidemia; I10 Essential (primary) hypertension; E11.9 Type 2 diabetes mellitus without complications; J44.89 Other specified chronic obstructive pulmonary disease; Z79.84 Long term (current) use of oral hypoglycemic drugs; Z79.51 Long term (current) use of inhaled steroids; Z79.891 Long term (current) use of opiate analgesic; Z87.891 Personal history of nicotine dependence; Z85.41 Personal history of malignant neoplasm of cervix uteri; Z82.49 Family history of ischemic heart disease and other diseases of the circulatory system
CPT/HCPCS: 45385; 82948; 88305; J2704; J7120

== ENCOUNTER 2023-09-27 12:33 | Outpatient (CLI) | payer MEDICARE, MEDICAID, SELFPAY ==
--- NOTE | ~2023-09-27 | US_ITS ---
EXAMINATION: US art doppler w press LE DATE: 09/27/2023 13:16 INDICATION: Peripheral arterial occlusive disease. TECHNIQUE: Segmental pressures and plethysmographic and Doppler waveforms of the brachial and lower e xtremity arteries were obtained. COMPARISON: None. FINDINGS: Right and left brachial artery pressures of 159 mm Hg and 142 mm Hg, respectively, are concordant (no rmal difference <= 30 mmHg). The right ankle-brachial index (ANDREW) is 0.87 (normal >= 0.9-1.0). The right great toe-brachial index (TBI) is 0.67 (normal >= 0.65). Arterial Doppler waveforms are monophasic with normal systolic upstro kes at the right common femoral, popliteal, posterior tibial and dorsalis pedis arteries. The left ANDREW is 0.75. The left TBI is 0.69. Arterial Doppler waveforms are monophasic with normal sys tolic upstrokes at the left common femoral, popliteal, posterior tibial and dorsalis pedis arteries. IMPRESSION: 1. Arterial occlusive disease to bilateral lower limbs with mildly decreased right and mild to modera tely decreased left ABIs. Reviewed, dictated and finalized at location A. IMPRESSION: 1. Arterial occlusive disease to bilateral lower limbs with mildly decreased ri ght and mild to moderately decreased left ABIs.
== END 2023-09-27 12:34 | disposition home or self-care (01) ==
LOC: CHSIMG 12:36
PROVIDERS: PCP Family Medicine; Visit Provider Podiatrist Foot & Ankle Surgery
DX: I73.9 Peripheral vascular disease, unspecified (principal)
CPT/HCPCS: 93923

== ENCOUNTER 2023-10-04 11:00 | Outpatient (CLI) | payer MEDICARE, MEDICAID, SELFPAY ==
--- NOTE | ~2023-10-04 | US_ITS ---
US axilla LT 10/04/2023 11:14 Indication: Probable left axillary abnormality Procedure: High-resolution Limited ultrasound of the left axilla Comparison: No prior studies for comparison. Findings: In the area of palpable concern there is a mass measuring 3.4 x 2.9 x 1.9 cm with thin hypo echoic cortex and enlarged fatty hilum with internal vascularity, consistent with enlarged lymph node . Impression: 1: Enlarged left axillary lymph node corresponding to the area of palpable concern measuring up to 3. 4 cm. If there is concern for metastatic disease or lymphoma, further evaluation with biopsy recommen ded. Reviewed, dictated and finalized at location B. Impression: 1: Enlarged left axillary lymph node corresponding to the area of palpable conc moses measuring up to 3.4 cm. If there is concern for metastatic disease or lymph brittany, further evaluation with biopsy recommended.
== END 2023-10-04 11:01 ==
PROVIDERS: PCP Family Medicine; Visit Provider Physician Assistant Medical
DX: R59.0 Localized enlarged lymph nodes (principal)
CPT/HCPCS: 76882

== ENCOUNTER 2023-10-11 08:55 | Outpatient (CLI) | payer MEDICARE, MEDICAID, SELFPAY ==
--- NOTE | ~2023-10-11 | MMUS_ITS ---
EXAMINATION: MM diagnostic venkat BI w maki, US breast RT limited HISTORY: History of axillary mass. TECHNIQUE: Additional 3-D tomosynthesis images of the breasts were performed and synthetic 2-D images were generated. CAD analysis was submitted and interpreted. High resolution Limited right breast ult rasound was performed. COMPARISON: Comparison to multiple prior studies sequentially, with oldest reviewed study dated 02/03. BREAST PARENCHYMAL COMPOSITION: Not dense: There are scattered areas of fibroglandular density. FINDINGS: MAMMOGRAPHIC FINDINGS: The breasts are stable. No new masses, calcifications or architectural distortion are identified in e ither breast to suggest malignancy. ULTRASOUND: Limited right breast ultrasound: At 3:00 in the subareolar location there is a 3 mm cyst. There are m ildly prominent ducts. Normal-appearing right axillary lymph nodes are present. No suspicious masses are identified to suggest malignancy. IMPRESSION: 1. No evidence for malignancy in either breast. 2. Routine yearly screening mammogram and regular clinical breast examination are recommended. BI-RADS Category 2: Benign finding(s). Reviewed, dictated and finalized at location B. IMPRESSION: 1. No evidence for malignancy in either breast. 2. Routine yearly screening mammogram and regular clinical breast examination a re recommended. BI-RADS Category 2: Benign finding(s).
== END 2023-10-11 08:56 | disposition home or self-care (01) ==
PROVIDERS: PCP Family Medicine; Visit Provider Physician Assistant Medical
DX: R92.8 Other abnormal and inconclusive findings on diagnostic imaging of breast (principal)
CPT/HCPCS: 76642; 77062; 77066; G0279

== ENCOUNTER 2023-11-14 11:12 | Outpatient (CLI) | payer MEDICARE, MEDICAID, SELFPAY ==
--- NOTE | 2023-11-14 11:30 | ECG_ITS ---
Test Date: 2023-11-14 11:33:22 Measurements Intervals [place] Rate: 66 P: 35 WI: 228 QRS: -3 QRSD: 60 T: 52 QT: 391 QTc: 411 Interpretive Statements SINUS RHYTHM WITH FIRST DEGREE AV BLOCK LOW QRS VOLTAGE IN PRECORDIAL LEADS EXTENSIVE ANTERIOR INFARCT, AGE INDETERMINATE INFERIOR INFARCT, AGE INDETERMINATE BASELINE ARTIFACT- I, II, III, AVR, AVL, AVF, V1 ABNORMAL ECG No previous ECG available for comparison Electronically Signed On 11-14-2023 11:46:30 CDT by Norberto Wisdom D.O.
[2023-11-14 11:59] LABS: Anion Gap 12 mmol/L (4-12); Blood Urea Nitrogen 16 mg/dL (7-17); Calcium 9.3 mg/dL (8.4-10.2); Carbon Dioxide 29 mmol/L (22-30); Chloride 96 mmol/L (98-107); Estimated Glomerular Filt Rate 55; Glucose 113 mg/dL (65-110); Potassium 4.8 mmol/L (3.4-5.0); Sodium 137 mmol/L (137-145)
== END 2023-11-14 11:13 | disposition home or self-care (01) ==
LOC: ANHSURGERY 11:16
PROVIDERS: Anesthesiology; PCP Family Medicine; Visit Provider Surgery
DX: E11.42 Type 2 diabetes mellitus with diabetic polyneuropathy (principal); E78.2 Mixed hyperlipidemia; I10 Essential (primary) hypertension; I44.0 Atrioventricular block, first degree
CPT/HCPCS: 36415; 80048; 93005

== ENCOUNTER 2023-11-15 01:34 | Day surgery (SDC) | payer MEDICARE, MEDICAID, SELFPAY ==
[2023-11-13 09:21] VITALS: BMI 44.9
--- NOTE | 2023-11-13 09:28 | PC.NURSE ---
Report to the Outpatient Waiting Room, entrance under the green pavilion located off [facility], at time _1130_ on date _20-20-1409_. Planned Procedure Time: _130pm_. Time changes happen often and if your time is changed the preop area will call you the afternoon before. - You and your visitor will be asked to self-screen and do not enter if you have any COVID symptoms. - A mask is optional within the hospital at this time. Patients may have clear liquids (water, carbonated beverages, clear teas, apple juice) until 3 hours prior to surgery with a maximum of 20 ounces. - No food from midnight until time of surgery Take the following medications with a SIP of water the morning of surgery: ____Hydroxyzine, Metoprolol, Inhaler and Flonase DO NOT STOP ANY OF YOUR OTHER PRESCRIPTION MEDICATIONS PRIOR TO SURGERY ?EXCEPT THE FOLLOWING Medications to discontinue per physician ____None No diabetic medication morning of surgery. Please no make-up, nail faroese, hairspray, perfume, deodorant, or body powder the day of surgery. No jewelry (including any body piercings) or valuables the day of surgery, leave them at home. Please take a shower or bath the night before, or the morning of, surgery with an antibacterial soap. Wear comfortable, loose fitting clothing. - Jewelry must be removed prior to entering the operating room. Rings and piercings that are not removed may be cut off. - The hospital will not accept responsibility for valuables. - Please leave all valuables, including medications, at home the day of surgery. If you are going home after surgery, a licensed entry level truck driver must drive you home. - NO public transportation without another adult if you receive anesthesia. - We recommend that an adult stay with you for 24 hours following discharge. - We also recommend that you do not drive, make important decision, drink alcoholic beverages, or take any drugs that were not prescribed by your health care provider for at least 24 hours after your discharge time. Follow any additional instructions given to you from your surgeon. If you or anyone in your household have experienced Covid symptoms in the past week, please notify your surgeon or the nurse liaison at the phone number below for possible testing. Telephone instructions given to __Mildred__and asked if any additional questions and then verbalized understanding. Patient advised to call surgeon office or pre surgery nurse liaison [phone] if any additional questions.
[2023-11-15] VITALS (7 sets, daily range): BP systolic 94–144; BP diastolic 45–86; PULSE 60–91; RESP 14–19; TEMP 36.3–36.4; O2SAT 93–100
--- NOTE | 2023-11-15 11:49 | WPDHPUPDATE1 ---
History and Physical Update Update Date/Time: 11/15/23 11:49 History and Physical has been reviewed, including an updated exam of the patient. There are NO changes in the patient's condition. Risks, benefits, and alternatives have been discussed and questions answered. Patient agrees to proceed with procedure.
[2023-11-15 11:57] LABS: Glucose Point of Care 135 mg/dl (65-105)
[2023-11-15] MEDS: LACTATED RINGERS 1,000 ML 30 ML IV CONT (12:00)
--- NOTE | 2023-11-15 12:07 | WPDANESEPP ---
Anes - Eval Pre Procedure Procedure: Operation Date: 11/15/23 13:30 Proposed Procedures p Excisional Biopsy Left Deep Axillary Lymph Node - Taiwo Lombardo DO Date/Time: 11/15/23 12:07 Pre Op Diagnosis: Lt Axill Lymphadenopathy 3 cm Patient Data Age: 73 Gender: F Height: 1.57 m Weight: 111.4 kg Allergies Allergy/AdvReac Type Severity Reaction Status Date / Time pioglitazone AdvReac Intermediate Swelling Verified 11/13/23 09:18 morphine AdvReac Unknown Agitated/An Verified 11/13/23 09:18 gry Home Medications Medication Instructions Recorded Confirmed Type blood sugar diagnostic (OneTouch #100 ea 12/15/19 11/13/23 Rx Ultra Blue Test Strip) Saccharomyces boulardii 250 mg 250 mg PO BID #30 caps 09/06/20 11/13/23 Rx capsule (Florastor) lorazepam 0.5 mg tablet 0.5 mg PO TID PRN anxiety #40 tabs 02/03/21 11/13/23 Rx famotidine 40 mg tablet 40 mg PO BID #20 tabs 06/22/22 11/13/23 Rx hydroxyzine HCl 25 mg tablet 25 mg PO TID #20 tabs 06/22/22 11/13/23 Rx blood sugar diagnostic (Blood #100 ea 11/13/22 11/13/23 Rx Glucose Test strips) hydrochlorothiazide 25 mg tablet 25 mg PO DAILY #90 tabs 02/13/23 11/13/23 Rx epinephrine 0.3 mg/0.3 mL 0.3 ml subcut ONCE PRN Anaphylaxis 03/11/23 11/13/23 History injection, auto-injector (EpiPen 2-Aditya) loratadine 10 mg tablet (Claritin) 10 mg PO DAILY #30 tabs 03/29/23 11/13/23 Rx metformin 1,000 mg tablet 1,000 mg PO BID #180 tabs 03/29/23 11/13/23 Rx pitavastatin calcium 4 mg tablet 4 mg PO HS #90 tabs 08/16/23 11/13/23 Rx (Livalo) diclofenac sodium 75 mg 75 mg PO BID PRN pain #180 tabs 08/26/23 11/13/23 Rx tablet,delayed release albuterol sulfate 90 mcg/actuation See Rx Instructions .Route 09/18/23 11/13/23 Rx aerosol inhaler .COMPLEX PRN Wheezing #8.5 grams blood-glucose meter #1 ea 09/18/23 11/13/23 Rx montelukast 10 mg tablet 10 mg PO QPM #30 tabs 09/18/23 11/13/23 Rx doxazosin 4 mg tablet 4 mg PO HS #90 tabs 09/24/23 11/13/23 Rx omeprazole 20 mg capsule,delayed See Rx Instructions .Route 09/24/23 11/13/23 Rx release .COMPLEX #90 caps fluticasone 500 mcg-salmeterol 50 See Rx Instructions .Route 09/26/23 11/13/23 Rx mcg/dose blistr powdr for .COMPLEX #60 ea inhalation (Juan Alcala) lisinopril 20 mg tablet 40 mg PO DAILY #180 tabs 10/15/23 11/13/23 Rx metoprolol tartrate 50 mg tablet 100 mg PO BID #360 tabs 10/20/23 11/13/23 Rx fluticasone propionate 50 1 spray intranasal Q12H #16 grams 10/21/23 11/13/23 Rx mcg/actuation nasal spray,suspension potassium chloride 10 mEq 10 meq PO .M W F #90 caps 10/21/23 11/13/23 Rx capsule,extended release tramadol 50 mg tablet 50 mg PO QID PRN pain #120 tabs 11/05/23 11/13/23 Rx Laboratory Tests 11/15/23 11:55 POC Capillary Glucose 135 H mg/dl (65-105) Patient hx anesthesia problems: none Family hx anesthesia problems: none Results Review: All pre-operative results and documents have been reviewed as part of the pre-operative evaluation. [facility] Past Medical History Medical History Abscess of salivary gland Allergic rhinitis Cervical cancer COPD mixed type Follow-up examination of abnormal mammogram Gastroesophageal reflux disease Incisional hernia Insomnia Low back pain Mixed hyperlipidemia Nasal crusting Nasal folliculitis Peripheral vascular disease Pharyngitis Primary hypertension Primary osteoarthritis involving multiple joints Salivary gland calculus Screening mammogram, encounter for Sialadenitis Type 2 diabetes mellitus with diabetic polyneuropathy, without long-term current use of insulin Surgical History Surgical History History of hernia repair (~02/2010) History of total hysterectomy Family History Family History Grandparent Diabetes mellitus Mother Diabetes mellitus H
--- NOTE | 2023-11-15 12:08 | P.PNAN_ITS ---
Anes - Eval Final PreProcedure Day of Procedure 11/15/23 12:08 Patient weight: morbidly obese Heart: regular rate and rhythm Lungs: clear to auscultation Airway: Mallampati scale class III Neurological: alert and oriented Last oral intake: >/= 8 hours ASA classification: III Emergent: no Anesthetic plan: proceed Anesthesia type and monitoring: general LMA and standard monitoring Results Review: All pre-operative results and documents have been reviewed as part of the pre- operative evaluation. Informed Consent: The patient's anesthetic plan and its attendant risks and benefits were discussed with the patient/family/POA. Questions were solicited and answers provided to the satisfaction of the patient/family/POA.
[2023-11-15] MEDS: ceFAZolin 2 GM/D5W 50 ML 2 GM/50 ML BAG IVPB (12:38)
[2023-11-15] MEDS: LIDO 1%/EPINEPHRINE 1:100,000 50 ML VIAL 30 ML INFILTRATE (12:59)
--- NOTE | 2023-11-15 13:10 | SUR.OPER ---
Specimen sent with PONCE [place] fresh for permanent
--- NOTE | 2023-11-15 13:18 | W.PM.PROC2 ---
Procedure Note - Detailed Date of Procedure 11/15/23 Pre-op Diagnosis Left Axillary Lymphadenopathy Post-op Diagnosis Same Procedure Performed Excisional biopsy of deep 3 cm left axillary lymph node Surgeon Taiwo Lombardo, DO Anesthesia General and Local (1% lidocaine with epinephrine) Indications This is a 73-year-old woman who presented with left axillary swelling for the past couple months. She was not noticing any improvement with this and a subsequent ultrasound was performed. This showed evidence of a 3 cm enlarged left axillary lymph node. No other surrounding abnormalities were noted. She also underwent left mammogram and ultrasound which showed no significant breast abnormalities. Discussions were made with the patient about treatment options and decision was made to proceed with excisional biopsy of 3 cm left axillary lymph node. Findings Excisional biopsy of the 3 cm left axillary lymph node was performed. The patient had a very deep left axillary lymph node that was enlarged but had no other significant abnormalities. The lymph node was carefully isolated and removed and sent to the lab for pathology. No other abnormalities were noted. Description of Procedure Procedure as well as risks, benefits, and alternatives were discussed with the patient. Written consent was obtained and placed chart prior to procedure. Patient was brought back to surgical suite. She was placed supine on operating table. Time-out was done to confirm patient and procedure. She was then intubated by the anesthesia department. Her left axillary region was prepped and draped in sterile fashion using chlorhexidine prep. 1% lidocaine with epinephrine was infiltrated locally around the skin and subcutaneous tissue. A 5 cm incision was then made directly over the palpable mass using a 15 blade scalpel. Electrocautery was then used for hemostasis and for dissection through the subcutaneous tissue. Sunil's fascia was dissected with electrocautery, and then the clavipectoral fascia was incised with electrocautery. This was rather deep due to the patient's obesity. I carefully dissected and palpated into the deeper axillary area and identified an enlarged lymph node in this region. A carefully grasp this lymph node and dissected the surrounding subcutaneous attachments using electrocautery. The blood supply to this lymph node was then ligated with 3-0 Vicryl [id number] sutures. The remaining attachments were taken down using electrocautery and the lymph node was completely removed and sent to the lab for pathology. The wound bed was then inspected and hemostasis appeared adequate no other abnormalities were noted. The clavipectoral fascia was then closed using 3-0 Vicryl simple interrupted sutures. The skin was then approximated using 4-0 Monocryl running subcuticular suture. Exofin glue was then applied on top. The patient was then awakened from anesthesia, extubated, and transferred to recovery. Estimated Blood Loss 10 Pathology Yes (Left axillary lymph node) Condition Stable Disposition Same day [facility] Billing Surgery - Charge Forward: Surgery Billing
[2023-11-15 13:36] LABS: Glucose Point of Care 133 mg/dl (65-105)
== END 2023-11-15 14:29 | disposition home or self-care (01) ==
PROVIDERS: PCP Family Medicine; Visit Provider Surgery
PROC: (CPT 38525; principal; 2023-11-15 13:30)
DX: R59.0 Localized enlarged lymph nodes (principal); I10 Essential (primary) hypertension; E11.42 Type 2 diabetes mellitus with diabetic polyneuropathy; E78.2 Mixed hyperlipidemia; J44.9 Chronic obstructive pulmonary disease, unspecified; K21.9 Gastro-esophageal reflux disease without esophagitis; G47.00 Insomnia, unspecified; E66.01 Morbid (severe) obesity due to excess calories; Z68.42 Body mass index [BMI] 45.0-49.9, adult; Z79.84 Long term (current) use of oral hypoglycemic drugs; Z79.51 Long term (current) use of inhaled steroids; Z79.891 Long term (current) use of opiate analgesic; Z98.890 Other specified postprocedural states; Z87.891 Personal history of nicotine dependence; Z85.41 Personal history of malignant neoplasm of cervix uteri; Z82.49 Family history of ischemic heart disease and other diseases of the circulatory system
CPT/HCPCS: 38525; 82948; 88108; 88184; 88185; 88305; A9270; J0690; J1100; J2250; J2405; J2704; J3010; J7120

== ENCOUNTER 2024-08-07 08:21 | Emergency (ER) | payer MEDICARE, MEDICAID, SELFPAY ==
[2024-08-07 08:21] VITALS: BP 183/80; PULSE 72; RESP 16; TEMP 36.2; O2SAT 96
--- OUTSIDE RECORDS SUMMARY | 2024-08-07 08:28 | XMS_ITS | Clinical Summary ---
Author Organization [facility] Address [address] [place] [address] Care Team Providers Care Yard Stocker Name Role Phone De Resendiz MD Primary Care Provider [phone] Source Comments [facility],non-owned Affiliates and Associated Physician Practices is amultiple site organization consisting of ambulatory clinics and hospital sitesin [place], [place], [place] and [place]. This disclosure is being madepursuant to the Care Everywhere program and may not contain all information available regarding this patient. Last updated 18.[facility] Allergies No known active allergies Medications * Be aware that medications may not be up to date on this document. Alwaysverify current medications with the patient. Medication Sig Dispensed Refills Start Date End Date Status albuterol HFA (PROVENTIL; VENTOLIN; PROAIR) 108 (90 Base) MCG/ACT inhaler INHALE 2 PUFFS BY MOUTH EVERY 4 TO 6 HOURS NEEDED FOR SHORTNESS OF BREATH OR WHEEZING 03/21/2021 Active doxazosin (CARDURA) 4 MG tablet Take 1 (one) tablet by mouth at bedtime 03/21/2021 Active hydroCHLOROthiazide (HYDRODIURIL) 12.5 MG Take 1 (one) tablet by mouth once daily 02/21/2021 Active metFORMIN (GLUCOPHAGE) 1000 MG tablet Take 1 (one) tablet by mouth 2 times daily 03/21/2021 Active omeprazole (PRILOSEC) 20 MG capsule Take 1 (one) capsule by mouth daily before breakfast 03/21/2021 Active Wixela Inhub 500-50 MCG/ACT inhaler INHALE 1 PUFF BY MOUTH EVERY 12 HOURS 01/06/2022 Active montelukast (Singulair) 10 MG tablet 02/12/2022 Active loratadine (Claritin) 10 MG tablet Take 1 (one) tablet by mouth once daily 01/12/2022 Active lisinopril (Prinivil; Zestril) 40 MG tablet Take 1 (one) tablet by mouth once daily 02/06/2022 Active fluticasone propionate (Flonase) 50 MCG/ACT nasal spray SHAKE LIQUID AND USE 1 SPRAY IN EACH NOSTRIL EVERY 12 HOURS 02/12/2022 Active metoprolol tartrate IR (Lopressor) 100 MG tablet Take 1 (one) tablet by mouth 2 times daily Active Livalo 4 MG tablet Take 1 (one) tablet by mouth at bedtime 02/28/2022 Active amoxicillin (Amoxil) 875 MG tablet Take by mouth every 12 hours TAKING FOR RIGHT EAR ACHE Active acetaminophen (Tylenol) 325 MG tablet Take 2 (two) tablets by mouth every 6 hours as needed for Fever or Pain Maximum allowable Acetaminophen amount = 4 Grams (4000 mg) / 24 hours. 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 Monthly or less 01/29/2022 Q2: How many drinks containi ng alcohol do you have on a typical day when you are drinking? 1 or 2 01/29/2022 Q3: How often do you have si x or more drinks on one occasion? Never 01/29/2022 Sex and Gender Information Value Date Recorded Sex Assigned at Not on file Gender Identity Not on file Sexual Orientation Not on file Last Filed Vital Signs Vital Sign Reading Time Taken Comments Blood Pressure 159/82 05/29/2022 9:55 AM REWINDER Pulse 67 05/29/2022 9:55 AM REWINDER Temperature 36.5 C (97.7 F) 05/21/2022 5:40 PM REWINDER Respiratory Rate 18 05/21/2022 6:15 PM REWINDER Oxygen Saturation 95% 05/29/2022 9:55 AM REWINDER Inhaled Oxygen Concentration - - Weight 116.4 kg (256 lb 9.6 oz) 05/29/2022 9:55 AM REWINDER Height 157.5 cm (5' 2 ) 05/29/2022 9:55 AM REWINDER Body Mass Index 46.93 05/29/2022 9:55 AM REWINDER Plan of Treatment Health Maintenance Due Date Last Done Comments BONE DENSITY TESTING 1950 COLOGUARD (AGES 45-75) - COLON CA SCREENING 1952 COLON MONITORING 1952 COLONOSCOPY - COLON CA SCREENING 1952 CT COLONOGRAPHY - COLON CA SCREENING 1952 Colorectal Cancer Screening 1952 FIT - COLON CA SCREENING 1952 FLEX SIG - COLON CA SCREENING 1952 MAMMOGRAM 1952 HEPATITIS C SCREENING 06/18/1970 DTAP/TDAP/TD VACCINES (1 - Tdap) 1971 LUNG CANCER SCREENING 2002 PNEUMOCOCCAL VACCINE 50+ (1 of 1 - PCV) 2002 ZOSTER VACCINE (1 of 2) 2002 Respiratory Syncytial Virus (RSV) Vaccine Pt: or over 60 yrs (1 - Risk 60-74 years 1-dose series) 2012 COVID-19 VACCINE (3 - season) 2024 03/15/2021, 07/12/2020 INFLUENZA VACCINE (#1) 2024 02/03/2021 DEPRESSION SCREENING 05/06/2024 MEDICARE AWV CALENDAR YEAR 2024 SCREENING FOR DIABETES 05/21/2025 3, 05/21/2022, 05/10/2022, Additional history exists HEPATITIS B VACCINE Aged Out No longe r eligible based on patient's age to complete this topic HIB VACCINE Aged Out No longer eligi ble based on patient's age to complete this topic HPV VACCINE Aged Out No longer eligi ble based on patient's age to complete this topic MENINGOCOCCAL (Group B) VACCINE SHARED DECISION-MAKING Aged Out No longer eligible based on patient's age to complete this topic MENINGOCOCCAL GROUPS A/C/Y/W VACCINE Aged Out No longer eligible based on patient's age to complete this topic Procedures Procedure Name Priority Date/Time Associated Diagnosis Comments GLUCOSE - POINT OF CARE Routine 05/21/2022 4:50 PM REWINDER from Last 3 Months or Most Recently Relevant to Health Maintenance Results * (ABNORMAL) GLUCOSE - POINT OF CARE (05/21/2022 4:50 PM REWINDER) Glucose WB/POC 118(H) 70 - 115 mg/dL 05/21/2022 4:51 PM REWINDER [facility] Specimen Type Cap Fingerstick 2022 4:51 PM REWINDER [facility] Blood BLOOD SPECIMEN / Unknown 05/21/2022 4:50 PM REWINDER 05/21/2022 4:51 PM REWINDER Loco Crowe MD LAB - POINT OF CO RE ORDERABLES [facility] [address] [place] [address], [facility] [phone] from Last 3 Months or Most Recently Relevant to Health Maintenance Insurance Payer Benefit Plan / Group Subscriber ID Effective Dates Phone Address Type [facility] MANAGED MEDICARE ADV [facility] STATE RETIREES MEDICARE ADV [id number] 05/07/2024-Pres ent [address] [address] [place] [address] Medicare-[place] aged Care [place] Effective for all dates [address] [address] [place] [address] Medicaid [place] [employer] MANAGED MEDICARE ADV [facility] STATE RETIREES MEDICARE ADV [id number] 05/07/2024-Pres ent [address] [address] [place] [address] Medicare-Man aged Care [place]ICAID [place] Effective for all dates [address] [address] [place] [address] Medicaid [facility] MANAGED MEDICARE ADV [facility] STATE RETIREES MEDICARE ADV [id number] 05/07/2024-Pres ent [address] [address] [place] [address] Medicare-Man aged Care [place] Effective for all dates [address] [address] [place] [address] Medicaid [facility] MANAGED MEDICARE ADV [facility] STATE RETIREES MEDICARE ADV [id number] 05/07/2024-Pres ent [address] [address] [place] [address] Medicare-Man aged Care [facility] MANAGED MEDICARE ADV [facility] MEDICARE ADV HMO/POS [id number] 05/06/2015-Pres ent [address] [address] [place] [address] Medicare-Man aged Care [facility] MANAGED MEDICARE ADV [facility] MEDICARE ADV HMO/POS [id number] 10/04/2021-Pres ent [address] [address] [place] [address] Medicare-Man aged Care Care Teams Yard Stocker Relationship Specialty Start Date End Date De Resendiz MD [address] [address] PCP - General 06/04/22
--- NOTE | 2024-08-07 08:38 | ED.SKABFB ---
HPI - Skin/Abscess/Foreign Bdy General Chief complaint: Skin/Abscess/Foreign Body Stated complaint: facial rash Time Seen by Provider: 08/07/24 08:31 Source: patient and family Mode of arrival: ambulatory Limitations: no limitations History of Present Illness HPI narrative: Patient is a 74-year-old female with a right face rash for the past 3 days. She thought initially this was an allergic reaction and came to the ER today for evaluation. She is having lots of pain. She does not have any vision changes. She feels like it is the skin and not the eye. MD complaint: rash Onset (ago): day(s) ( Three) Tetanus up to date: unsure Location: face ( right upper) Severity: moderate Severity scale (1-10): 9 Quality: burning and sharp Pain Consistency: constant Relieving factors: none Exacerbating factors: none Context: other ( patient having a right face rash worsening over the past 3 days) Associated symptoms: denies other symptoms Treatments prior to arrival: none Related Data Home Medications ?Medication ?Instructions ?Recorded ?Confirmed ?Last Taken ?Type epinephrine 0.3 mg/0.3 mL 0.3 ml subcut ONCE PRN Anaphylaxis 03/11/23 12/02/23 Unknown History injection, auto-injector (EpiPen 2-Aditya) Allergies Allergy/AdvReac Type Severity Reaction Status Date / Time pioglitazone AdvReac Intermediate Swelling Verified 08/07/24 08:31 morphine AdvReac Unknown Agitated/An Verified 08/07/24 08:31 gry Review of Systems Review of Systems: All systems reviewed & are unremarkable except as noted in HPI and below Constitutional: Constitutional: Reports no additional constitutional complaints Eyes: Eyes: Reports no additional eye complaints ENT: Reports system reviewed and no additional complaints, except as documented Cardiovascular: Cardiovascular: Reports no additional cardiovascular complaints Respiratory: Respiratory: Reports no additional respiratory complaints Gastrointestinal: Gastrointestinal: Reports no additional gastrointestinal complaints Genitourinary: Genitourinary: Reports no additional female genitourinary complaints Musculoskeletal: Musculoskeletal: Reports no additional musculoskeletal complaints Integumentary/Breasts: Skin/Breast: Reports system reviewed and no additional complaints, except as docu Neurologic: Reports system reviewed and no additional complaints, except as documented Psychiatric: Psychiatric: Reports no additional psychiatric complaints Endocrine: Endocrine: Reports no additional endocrine complaints Hematologic/Lymphatic: Hematologic/Lymphatic: Reports no additional hematologic/lymphatic complaints Allergic/Immunologic: Allergic/Immunologic: Reports no additional allergic/immunologic complaints PMFSH Past Medical History Medical History Peripheral vascular disease Salivary gland calculus Low back pain Follow-up examination of abnormal mammogram Allergic rhinitis Nasal crusting Nasal folliculitis Screening mammogram, encounter for Cervical cancer Gastroesophageal reflux disease Pharyngitis Abscess of salivary gland Sialadenitis Primary hypertension Mixed hyperlipidemia Insomnia 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 Type 2 diabetes mellitus with diabetic polyneuropathy, without long-term current use of insulin Incisional hernia Surgical History Surgical History History of total hysterectomy History of hernia repair (~02/2010) Family History Family History Grandparent Diabetes mellitus Mother Diabetes mellitus Hypertension Family history of cardiovascular disease Family history of diabetes mellitus in first degree relative Family history of heart disease in male family member before age 55 Father Family history of emphysema Other Asthma Family history of alcoholism Family history of liver disease Social History Social History Social History: Surrogate decision maker: Halina Calero, daughter. Code status: Full code. Smoking packs per day: 1 Smoking cigarettes per day: 20.0 Years smoked: 40 Smoking pack-years: 40.00 Smoking status: Former smoker Tobacco type: cigarettes Second hand tobacco smoke exposure: No Smoking end date: 11/13/11 Alcohol intake: never Substance use: never Substance use type: does not use Lack of Transportation: YES Lack of Food: Sometimes True Current Housing: I Have Housing Concerned About Future Housing: No Difficulty Paying Gas/Electric Bills: YES Difficulty Paying for Meds: No Currently Unemployed: No Education: Decline to Answer Difficulty w/ Childcare or Family Care: No Living arrangements: alone Additional living arrangements comments: Resides in [place] in her own home. Occupation/Education: retired Additional occupation/education comments: Unemployed. Gender identity (if verbalized by the patient): Female Spiritual care concerns: No Exam Const: General: healthy appearing Nutritional Appearance: well nourished Orientation/consciousness: patient oriented x3 Limitations: no limitations HENMT: Head: normal to inspection Ears: external ears normal Face/Nose/Sinus: Normal external nose present Eyes: Conjunctivae: conjunctivae normal Pupils: Equal, round and reactive pupils present EOM: EOMs intact bilaterally Neck: Neck: normal visual inspection Chest: Chest palpation & inspection: normal inspection of the chest Resp: Effort & Inspection: normal respiratory effort and not labored Auscultation: clear to auscultation bilaterally and no crackles Cardio: Rate: regular rate Rhythm: regular rhythm Heart sounds: no murmurs GI: Inspection: non-distended Auscultation: normal bowel sounds and bowel sounds present : General: Yes bladder normal to palpation Back/Spine/Pelvis: Back: no CVA tenderness Skin: General skin exam: No normal color Rashes: rash noted Wounds: no wounds Other: right face from mid front scalp to the right nose has a red erythema rash with early vesicles and demarcated lines only half the body; this does not cross the midline; the eye does not appear to be involved Neuro: General: patient oriented x3 Cranial nerves: Yes Nystagmus not present Speech: normal speech Extrem: General: normal to inspection Psych: Mental Status: mental status grossly normal Affect: normal affect Attitude: cooperative Course Vital Signs Vital signs: Vital Signs Temperature 36.2 C L 08/07/24 08:21 Pulse Rate 72 08/07/24 08:21 Respiratory Rate 16 08/07/24 08:21 Blood Pressure 183/80 H 08/07/24 08:21 Pulse Oximetry 96 08/07/24 08:21 Oxygen Delivery Room Air 08/07/24 08:21 Temperature 36.2 C L 08/07/24 08:21 Pulse Rate 72 08/07/24 08:21 Respiratory Rate 16 08/07/24 08:21 Blood Pressure 183/80 H 08/07/24 08:21 Pulse Oximetry 96 08/07/24 08:21 Oxygen Delivery Room Air 08/07/24 08:21 MDM - Skin/Abscess/Foreign Bdy MDM Narrative Medical decision making narrative: patient is a 74-year-old female with a right face rash /shingles for the past 3 days. We will do a Toradol shot now. We will give antiviral oral and pain medication. we have scheduled the patient for an oil well fishing tool operator appointment today in [place] to make plans for the vision and eye. I do not feel that the vision or eye is involved at this exact time but it is not completely clear so I will make sure they see the eye physician today. Discharge Plan Discharge Clinical Impression: Shingles Qualifiers: Herpes zoster complications: without complications Qualified Code(s): B02.9 - Zoster without complications Patient Disposition: Home, Self-Care Condition: Stable Instructions: Shingles (ED) Additional Instructions: please follow-up with the primary doctor in the next week. We have scheduled you for an oil well fishing tool operator appointment today. Please see nurse's notes on where you are going for your appointment. [facility] [phone] ( Professional [place] Jody Currie). Patient Language: Swedish Prescriptions: New oxycodone-acetaminophen [Percocet] 5-325 mg tablet 1 tablet PO Q8H PRN (Reason: pain) Qty: 30 0RF valacyclovir [Valtrex] 1 gram tablet 1,000 mg PO TID 10 Days Qty: 30 1RF No Action hydroxyzine HCl 25 mg tablet 25 mg PO TID Qty: 20 0RF famotidine 40 mg tablet 40 mg PO BID Qty: 20 0RF lorazepam 0.5 mg tablet 0.5 mg PO TID PRN (Reason: anxiety) Qty: 40 0RF epinephrine [EpiPen 2-Aditya] 0.3 mg/0.3 mL auto-injector 0.3 ml subcut ONCE PRN (Reason: Anaphylaxis) Rx Instructions: as a single dose; may repeat once Saccharomyces boulardii [Florastor] 250 mg Capsule 250 mg PO BID Qty: 30 0RF Livalo 4 mg tablet 4 mg PO HS Qty: 90 2RF potassium chloride 10 mEq capsule, extended release 10 meq PO .M W F Qty: 90 1RF montelukast 10 mg tablet 10 mg PO QPM Qty: 30 5RF Rx Instructions: take 1 tablet by oral route every day in the evening loratadine [Claritin] 10 mg tablet 10 mg PO DAILY Qty: 30 11RF (DME) blood-glucose meter [OneTouch Ultra2 Meter] [facility] See Rx Instructions .ROUTE .COMPLEX Qty: 1 0RF Dose Instruction: DIRECTED Rx Instructions: DIRECTED omeprazole 20 mg capsule,delayed release(DR/EC) See Rx Instructions .ROUTE .COMPLEX Qty: 90 1RF Dose Instruction: TAKE 1 CAPSULE(20 MG) BY MOUTH EVERY DAY 30 MINUTES TO 1 HOUR BEFORE A MEAL Rx Instructions: TAKE 1 CAPSULE(20 MG) BY MOUTH EVERY DAY 30 MINUTES TO 1 HOUR BEFORE A MEAL doxazosin 4 mg tablet 4 mg PO HS Qty: 90 1RF Rx Instructions: TAKE 1 TABLET BY ORAL ROUTE EVERY DAY hydrochlorothiazide 25 mg tablet 25 mg PO DAILY Qty: 90 2RF Rx Instructions: in AM metformin 1,000 mg tablet 1,000 mg PO BID Qty: 180 3RF metoprolol tartrate 50 mg tablet 100 mg PO BID Qty: 360 1RF fluticasone propionate 50 mcg/actuation spray,suspension 1 spray intranasal Q12H Qty: 16 5RF Rx Instructions: administer into each nostril (DME) [employer] Ultra Test Strip See Rx Instructions .Route Qty: 100 12RF Rx Instructions: Use daily diclofenac sodium 75 mg tablet,delayed release (DR/EC) 75 mg PO BID PRN (Reason: pain) Qty: 180 0RF Rx Instructions: Take with food. Do not take other NSAIDs while on this medication. lisinopril 20 mg tablet 40 mg PO DAILY Qty: 180 1RF fluticasone propion-salmeterol [Wixela Inhub] 500-50 mcg/dose blister with device See Rx Instructions .ROUTE .COMPLEX Qty: 60 5RF Dose Instruction: INHALE 1 PUFF BY MOUTH EVERY 12 HOURS Rx Instructions: INHALE 1 PUFF BY MOUTH EVERY 12 HOURS albuterol sulfate 90 mcg/actuation HFA aerosol inhaler See Rx Instructions .ROUTE .COMPLEX PRN (Reason: Wheezing) Qty: 8.5 4RF Rx Instructions: INHALE 2 PUFFS BY MOUTH EVERY 4 TO 6 HOURS NEEDED FOR SHORTNESS OF BREATH OR WHEEZING polymyxin B sulf-trimethoprim 10,000 unit- 1 mg/mL drops 1 drp EACH EYE Q3H 7 Days Qty: 10 0RF Rx Instructions: while awake; do not exceed 6 doses in 24 hours tramadol 50 mg tablet 50 mg PO QID PRN (Reason: pain) Qty: 120 0RF Follow-up/Referrals: Kaci Joe MD [Primary Care Provider] - Time of Disposition: 08:53
[2024-08-07] MEDS: KETOROLAC (*BKC) 60 MG/2 ML VIAL IM (08:44)
--- OUTSIDE RECORDS SUMMARY | 2024-08-07 08:59 | XMS_ITS | Clinical Summary ---
Author Organization [facility] Address [address] [place] [address] Care Team Providers Care Forest Fire Specialist Supervisor Name Role Phone De Resendiz MD Primary Care Provider [phone] Source Comments [facility],non-owned Affiliates and Associated Physician Practices is amultiple site organization consisting of ambulatory clinics and hospital sitesin [place], [place], [place]. This disclosure is being madepursuant to the Care Everywhere program and may not contain all information available regarding this patient. Last updated 18.[facility] Allergies No known active allergies Medications * [...] Comments Blood Pressure 159/82 05/29/2022 9:55 AM SENIOR CLERK Pulse 67 05/29/2022 9:55 AM SENIOR CLERK Temperature 36.5 C (97.7 F) 05/21/2022 5:40 PM SENIOR CLERK Respiratory Rate 18 05/21/2022 6:15 PM SENIOR CLERK Oxygen Saturation 95% 05/29/2022 9:55 AM SENIOR CLERK Inhaled Oxygen Concentration - - Weight 116.4 kg (256 lb 9.6 oz) 05/29/2022 9:55 AM SENIOR CLERK Height 157.5 cm (5' 2 ) 05/29/2022 9:55 AM SENIOR CLERK Body Mass Index 46.93 05/29/2022 9:55 AM SENIOR CLERK Plan of Treatment Health Maintenance Due Date [...] POINT OF CARE Routine 05/21/2022 4:50 PM SENIOR CLERK from Last 3 Months or Most Recently Relevant to Health Maintenance Results * (ABNORMAL) GLUCOSE - POINT OF CARE (05/21/2022 4:50 PM SENIOR CLERK) Glucose WB/POC 118(H) 70 - 115 mg/dL 05/21/2022 4:51 PM SENIOR CLERK [facility] Specimen Type Cap Fingerstick 2022 4:51 PM SENIOR CLERK [facility] Blood BLOOD SPECIMEN / Unknown 05/21/2022 4:50 PM SENIOR CLERK 05/21/2022 4:51 PM SENIOR CLERK Loco Crowe MD LAB - POINT OF SD RE ORDERABLES [facility] [address] [place] [address], [facility] [phone] from Last 3 Months or Most Recently Relevant to Health Maintenance Care Teams Forest Fire Specialist Supervisor Relationship Specialty Start Date End Date De Resendiz MD [address] [place] [address] PCP - General 06/04/22
[2024-08-07] MEDS: valACYclovir HCL 500 MG TABLET 1000 MG PO (09:38)
[2024-08-07 09:43] VITALS: BP 165/82; PULSE 70; RESP 17; TEMP 36.4; O2SAT 97
== END 2024-08-07 09:43 | disposition home or self-care (01) ==
PROVIDERS: Emergency Provider Emergency Medicine; PCP Family Medicine
DX: B02.9 Zoster without complications (principal); E11.9 Type 2 diabetes mellitus without complications; I10 Essential (primary) hypertension; E78.2 Mixed hyperlipidemia; J44.9 Chronic obstructive pulmonary disease, unspecified; Z87.891 Personal history of nicotine dependence
CPT/HCPCS: 96372; 99283; A9270; J1885

== ENCOUNTER 2025-01-08 11:59 | Outpatient (CLI) | payer MEDICARE, MEDICAID, SELFPAY ==
--- NOTE | ~2025-01-08 | MM_ITS ---
EXAMINATION: MM screening venkat BI w maki HISTORY: Screening TECHNIQUE: Craniocaudal and mediolateral oblique 3-D tomosynthesis images were obtained and synthetic 2-D images were generated. CAD analysis was submitted and interpreted. COMPARISON: Mammograms from 10/11/2023 and 08/10/2021 BREAST PARENCHYMAL COMPOSITION: There are scattered areas of fibroglandular density. FINDINGS: There is no evidence of suspicious calcification, or architectural distortion to suggest malignancy. Interval increase in the size of a mass in the upper outer quadrant of the left breast, posterior depth. Focal asymmetry in the upper outer quadrant of the right breast posterior depth IMPRESSION: 1. Interval increase in the size of a mass in the upper outer quadrant of the left breast. The study is incomplete. A diagnostic left breast mammogram and a diagnostic left breast ultrasound is recommended. 2. Focal asymmetry in the right breast. The study is incomplete. A diagnostic right breast mammogram and a diagnostic right breast ultrasound is recommended. BI-RADS 0: Incomplete-Need additional imaging evaluation. Reviewed, dictated and finalized at location Q. IMPRESSION: 1. Interval increase in the size of a mass in the upper outer quadrant of the l eft breast. The study is incomplete. A diagnostic left breast mammogram and a d iagnostic left breast ultrasound is recommended. 2. Focal asymmetry in the right breast. The study is incomplete. A diagnostic r ight breast mammogram and a diagnostic right breast ultrasound is recommended. BI-RADS 0: Incomplete-Need additional imaging evaluation.
--- NOTE | ~2025-01-08 | DEXA_ITS ---
Bone Density Report Name: GERMAIN ZAVALETA Age: 74 Sex: Female Ethnicity: White Date of : 1950 Indication: postmenopausal; screening for osteoporosis; height loss; prior fracture; hysterectomy; rheumatoid arthritis; Referring Provider: MIRYAM VERDUGO Study: Bone densitometry was performed. Exam Date: January 08, 2025 Accession number: [id number] Bone Density: Region BMD T-score Z-score Classification AP Spine(L2, L3, L4) 1.161 0.7 3.1 Normal Femoral Neck (Left) 0.776 -0.7 1.3 Normal Total Hip (Left) 1.040 0.8 2.4 Normal Femoral Neck (Right) 0.900 0.5 2.4 Normal Total Hip (Right) 1.017 0.6 2.3 Normal Femoral Neck Mean 0.838 -0.1 1.8 Normal Total Hip Mean 1.029 0.7 2.4 Normal World Health Organization criteria for BMD impression classify patients as: Normal (T-score at or above -1.0), Osteopenia (T-score between -1.0 and -2.5), or Osteoporosis (T-score at or below -2.5). 10-year Fracture Risk: FRAX not reported because: All T-scores for Spine Total, Hip Total, Femoral Neck at or above -1.0 Clinical Information Provided by Patient: Has had a low trauma fracture Has rheumatoid arthritis Has used the following medications: Vitamin D Has the following medical conditions: Hysterectomy Patient maximum height was 63 Menopause Age: 47 No regular weight bearing exercise Does not regularly consume dairy products Drinks caffeinated beverages Onset of menses at age 14 Number of children 3 Impression: The patient has normal bone mass. The patient has risk factors, including: previous fracture. Discussion: BONE DENSITY IS ABOVE THE MINIMUM DESIRABLE LEVEL AT ALL SKELETAL SITES TESTED. This patient?s bone mineral density is above the minimum desirable level (T-score -1.0 or better) at all sites measured. The patient should follow a healthful lifestyle (good nutrition with adequate calcium and vitamin D, and appropriate weight-bearing exercise). Follow-Up: Consider repeating this study in 5 years or sooner if there is some new clinical indication. Reported by: MAUREEN on 01/15/2025 8:14:00 AM. Reviewed, dictated and finalized at location Q.
== END 2025-01-08 12:00 | disposition home or self-care (01) ==
LOC: CHSIMG 12:00
PROVIDERS: PCP Family Medicine; Visit Provider Student in an Organized Health Care Education/Training Program
DX: Z12.31 Encounter for screening mammogram for malignant neoplasm of breast (principal); Z78.0 Asymptomatic menopausal state; R92.8 Other abnormal and inconclusive findings on diagnostic imaging of breast
CPT/HCPCS: 77063; 77067; 77080